=== PATIENT | female | born 1960 | race Caucasian/White ===

== ENCOUNTER 2018-09-27 10:16 | Day surgery (SDC) | payer OTHER ==
[2018-09-26 12:18] VITALS: BMI 34.9
[~2018-09-27 10:16] MED LIST: DEXAMETHASONE SOD PHOSPHATE 10 MG/ML 1 ML VIAL IV ONE; LACTATED RINGERS 1,000 ML IV SCH; MIDAZOLAM 2 MG/2 ML VIAL IV PRN; ONDANSETRON 4 MG/2 ML VIAL IVP ONE; Pre Op ABX Message 1 EACH MISC MISCELLANE ONE; SCOPOLAMINE 1.5MG/72HR PATCH TRANSDERM ONE; fentaNYL (PF) 50 MCG/ML 2 ML AMP IV PRN
[2018-09-27 11:27] VITALS: RESP 16; TEMP 97.3
[2018-09-27] MEDS ORDERED: LIDOCAINE 1% 20 ML VIAL (10MG/ML) FOR IV START INTRADERMA ONE (11:39)
[2018-09-27] MEDS ORDERED: MIDAZOLAM 2 MG/2 ML VIAL ONE (11:56)
[2018-09-27] MEDS ORDERED: fentaNYL (PF) 50 MCG/ML 2 ML AMP ONE (11:56)
[2018-09-27] MEDS ORDERED: KETAMINE 10 MG/ML 20 ML VIAL ONE (11:56)
[2018-09-27] MEDS ORDERED: PROPOFOL 10 MG/ML 20 ML VIAL IV ONE (11:56)
[2018-09-27] MEDS ORDERED: LIDOCAINE 1%-EPI 1:100,000 30 ML VIAL SQ ONE (12:15)
[2018-09-27] MEDS ORDERED: BUPIVACAINE (PF) 0.5% 30 ML VIAL SQ ONE ×2 (12:33→12:54)
[2018-09-27] MEDS ORDERED: LACTATED RINGERS 1,000 ML IV ONE ×2 (13:20)
[2018-09-27 13:55] VITALS: BP 115/68; PULSE 79
--- NOTE | 2018-09-28 14:38 | P.OP ---
Date of Procedure: 09/27/18 Preoperative Diagnosis: 1. Right carpal tunnel syndrome 2. Trigger digits of the right thumb, middle and ring fingers Postoperative Diagnosis: 1. Right carpal tunnel syndrome 2. Trigger digits of the right thumb, middle and ring fingers Procedure(s) Performed: 1. Right endoscopic carpal tunnel release 2. Release of right trigger thumb, right middle and ring trigger fingers Anesthesia: MAC, local Surgeon: Pablo Guerra Estimated Blood Loss (ml): 3 Condition: stable Disposition: PACU Indications for Procedure: The patient is a 58-year-old female who was diagnosed with right carpal tunnel syndrome and trigger digits of the right thumb, middle and ring fingers. Treatment options (and associated risks and benefits) were discussed in the office. The patient elected to proceed with surgical release. In preop, the patient denied any additional questions or concerns. Consent forms were signed. The operative sites were confirmed and marked. Description of Procedure: The patient was positioned supine with the operative limb on an arm board. A tourniquet was placed on the operative arm. Anesthesia was administered uneventfully. A time-out was performed, confirming patient identifiers, the operative side, sites and the procedures to be performed: all team members expressed agreement. Using aseptic technique, local anesthetic was injected into the subcutaneous tissues around the planned incisions. The right upper extremity was then prepped and draped in standard, sterile fashion. The limb was exsanguinated with an Esmarch and the tourniquet was inflated. The carpal tunnel was approached first. Loupe magnification was used throughout the case for optimum visualization. A 1.5 cm transverse incision was marked just proximal to the wrist flexion crease, in line with the radial border of the ring finger. The skin was sharply incised and the subcutaneous tissues were bluntly spread. The volar carpal fascia was identified and sharply incised. A synovial elevator was used to release adhesions on the underside of the transverse carpal ligament. A dilator was inserted to sound and enlarge the carpal tunnel. The hamate hook was palpable ulnarly. The side-specific guide and camera were inserted. The transverse carpal ligament was clearly visualized above. The distal edge of the ligament was identified and palpated with a probe. A rasp was used to clear the remaining synovial adhesions. The endoscopic blade was inserted and the distal half of the ligament was sharply incised. Residual distal transverse fibers were released and then the proximal portion of the ligament was divided. Wide release of ligament was visually confirmed. The camera was removed. The volar carpal fascia proximal and distal to the incision was released with scissors under direct visualization. Attention was then turned to the thumb. A transverse incision was made in the MCP flexion crease. Blunt, spreading dissection proceeded down to the flexor sheath, taking care to protect the adjacent neurovascular bundles. Thickened, synovial bands were identified overl christi the flexor sheath and these were sharply released with scissors under direct visualization. The A1 hay was identified. This was sharply incised longitudinally. The sheath was still quite stenosed and the proximal aspect of the oblique hay was also partially released. The tendon was elevated out of the wound with a Ragnell retractor. Palpable release of adhesions in the palm was noted and the IP joint showed good passive flexion. The tendon was released and allowed to retract back into the wound. Attention was turned to the middle and ring fingers. A longitudinal incision was marked over the A1 hay of the middle finger. The skin was sharply incised. Blunt, spreading dissection proceeded down flexor sheath, taking care to protect the adjacent neurovascular bundles. The A1 hay was identified. The hay was incised longitudinally with a 15-blade scalpel. A few millimeters of the proximal aspect of the A2 hay was also released. There was mild, superficial fraying of the superficialis tendon beneath the ahy. The flexor tendons were elevated out of the wound with Ragnell retractors. Palpable release of proximal adhesions in the palm was noted. A small amount of thickened synovial tissue was identified proximally between the tendons and was sharply resected. The tendons were released and allowed to retract back to their anatomic position. Passive motion of the digit demonstrated smooth tendon gliding without appreciable catching, triggering or focal restriction. This process was repeated for the ring finger. The procedure was performed in a similar fashion. These tendons showed no fraying or thickened tenosynovium. Smooth tendon gliding with passive motion was noted after release without triggering or catching. The tourniquet was released after 31 minutes at 250mm Hg. Some mild bleeding was controlled with held pressure and good hemostasis was confirmed. The wounds were thoroughly irrigated with normal saline. The incisions were closed with interrupted 4-0 Nylon sutures. Additional local anesthetic was injected for postoperative pain control. A soft, sterile dressing was applied. All sponge, needle and instrument counts were correct at the end of the case. The patient tolerated the procedure well and was transferred to recovery in stable condition.
== END 2018-09-27 14:17 | disposition home or self-care (01) ==
LOC: OR 10:16
PROVIDERS: ATTEND Orthopaedic Surgery
DX: G56.03 Carpal tunnel syndrome, bilateral upper limbs (principal); M65.311 Trigger thumb, right thumb; M65.331 Trigger finger, right middle finger; M65.341 Trigger finger, right ring finger; M79.7 Fibromyalgia; Z79.1 Long term (current) use of non-steroidal anti-inflammatories (NSAID); Z79.899 Other long term (current) drug therapy; Z88.5 Allergy status to narcotic agent; Z88.8 Allergy status to other drugs, medicaments and biological substances
CPT/HCPCS: 64721; 26055 ×3; J2250; J2405; J3010; J2704

== ENCOUNTER 2018-10-25 10:41 | Day surgery (SDC) | payer OTHER ==
[2018-10-23 10:59] VITALS: BMI 34.7
[~2018-10-25 10:41] MED LIST changes: -DEXAMETHASONE SOD PHOSPHATE 10 MG/ML 1 ML VIAL IV ONE; -MIDAZOLAM 2 MG/2 ML VIAL IV PRN; -ONDANSETRON 4 MG/2 ML VIAL IVP ONE; -SCOPOLAMINE 1.5MG/72HR PATCH TRANSDERM ONE; -fentaNYL (PF) 50 MCG/ML 2 ML AMP IV PRN
[2018-10-25 11:04] VITALS: RESP 16; TEMP 97.4
[2018-10-25] MEDS: LIDOCAINE 1% 20 ML VIAL (10MG/ML) FOR IV START INTRADERMA ONE ×2 (11:14→12:53)
[2018-10-25] MEDS ORDERED: fentaNYL (PF) 50 MCG/ML 2 ML AMP ONE (12:45)
[2018-10-25] MEDS ORDERED: MIDAZOLAM 2 MG/2 ML VIAL ONE (12:45)
[2018-10-25] MEDS ORDERED: PROPOFOL 10 MG/ML 20 ML VIAL IV ONE (12:45)
--- NOTE | 2018-10-25 13:48 | P.OP ---
Date of Procedure: 10/25/18 Preoperative Diagnosis: Left carpal tunnel syndrome Postoperative Diagnosis: Left carpal tunnel syndrome Procedure(s) Performed: Left endoscopic carpal tunnel release Anesthesia: MAC, local Surgeon: Pablo Guerra Estimated Blood Loss (ml): 1 Condition: stable Disposition: PACU Indications for Procedure: The patient is a 58-year-old female who was diagnosed with bilateral carpal tunnel syndrome and previously underwent release of her right side. She had persistent symptoms on the left and wished to have this released as well. Treatment options (and associated risks and benefits) were discussed in the office. The patient elected to proceed with surgical release. In preop, the patient denied any additional questions or concerns. Consent forms were signed. The operative site was confirmed and marked. Description of Procedure: The patient was positioned supine with the operative limb on an arm board. Monitored anesthesia was administered uneventfully. A tourniquet was placed on the left arm. A time-out was performed which confirmed the patient, the operative side, site and the procedure to be performed: all team members expressed agreement. Using aseptic technique, local anesthetic was injected into the subcutaneous tissues around the planned incision. The left upper extremity was then prepped and draped in standard, sterile fashion. The limb was exsanguinated with an Esmarch and the tourniquet was inflated. A transverse incision was marked just proximal to the wrist flexion crease, in line with the radial border of the ring finger. The skin was sharply incised and the subcutaneous tissues were spread. The volar carpal fascia was identified and sharply incised. A synovial elevator was used to release adhesions on the underside of the transverse carpal ligament. A dilator was used to sound and enlarge the carpal tunnel. The hamate hook was palpable ulnarly. The side- specific guide and camera were inserted. The ligament was clearly visualized above. The endoscopic blade was inserted and the distal half of the ligament was sharply incised. Residual transverse fibers were released distally and then the proximal portion of the ligament was divided. Wide release of ligament was visually confirmed. The camera was removed. Under direct visualization with loupe magnification, the volar carpal fascia was released with scissors, distal and proximal to the incision. There was some mild, thickened perineural tissue noted around the nerve but this was not constricting and the nerve was freely mobile. The tourniquet was released and excellent hemostasis obtained with held pressure. The wound was thoroughly irrigated with normal saline and the incision was closed with interrupted 4-0 Nylon sutures. Additional local anesthetic with epinephrine was injected for adjunctive postoperative pain control and hemostasis. A soft, sterile dressing was applied. All sponge, needle and instrument counts were correct at the end of the case. The patient tolerated the procedure well and was transferred to recovery in stable condition.
[2018-10-25 14:16] VITALS: BP 112/57; PULSE 55
== END 2018-10-25 14:20 | disposition home or self-care (01) ==
LOC: OR 10:41
PROVIDERS: ATTEND Orthopaedic Surgery
DX: G56.02 Carpal tunnel syndrome, left upper limb (principal); K21.9 Gastro-esophageal reflux disease without esophagitis; M79.7 Fibromyalgia; Z98.1 Arthrodesis status; Z79.1 Long term (current) use of non-steroidal anti-inflammatories (NSAID); Z79.899 Other long term (current) drug therapy; Z88.5 Allergy status to narcotic agent; Z88.8 Allergy status to other drugs, medicaments and biological substances
CPT/HCPCS: 29848; J2250; J3010; J2704

== ENCOUNTER → 2019-03-04 | Outpatient (CLI) | payer OTHER ==
--- NOTE | 2019-03-04 11:23 | XR ---
EXAMINATION TYPE: XR chest 2V DATE OF EXAM: 03/04/2019 COMPARISON: NONE HISTORY: Presurgical examination. TECHNIQUE: Frontal and lateral views of the chest are obtained. FINDINGS: There is no focal air space opacity, pleural effusion, or pneumothorax seen. The cardiac silhouette size is within normal limits. The osseous structures are intact. Minimal degenerative ch anges of the thoracic spine. IMPRESSION: No acute cardiopulmonary process.
[2019-03-04 11:43] LABS: Basophils # (A) 0.2 k/uL (0-0.2); Basophils % (A) 3 %; Eosinophils # (A) 0.3 k/uL (0-0.7); Eosinophils % (A) 4 %; HCT 41.5 % (34.0-46.0); HGB 12.9 gm/dL (11.4-16.0); Lymphocytes # (A) 2.2 k/uL (1.0-4.8); Lymphocytes % (A) 34 %; MCHC 31.1 g/dL (31.0-37.0); MCV 93.2 fL (80.0-100.0); Mean Platelet Volume 6.9; Monocytes # (A) 0.4 k/uL (0-1.0); Monocytes % (A) 6 %; Neutrophils # (A) 3.3 k/uL (1.3-7.7); Neutrophils % (A) 51 %; Platelet Count 322 k/uL (150-450); RBC 4.45 m/uL (3.80-5.40); RDW 13.6 % (11.5-15.5); WBC 6.5 k/uL (3.8-10.6)
[2019-03-04 11:46] LABS: Appearance,Urine Clear (Clear); Bilirubin,Urine Negative (Negative); Blood,Urine Small (Negative); Color,Urine Light Yellow; Glucose,Urine (UA) Negative (Negative); Ketones,Urine Negative (Negative); Leukocyte Esterase,Urine Negative (Negative); Nitrite,Urine Negative (Negative); Protein,Urine Negative (Negative); RBC,Urine 4 /hpf (0-5); Specific Gravity,Urine 1.008 (1.001-1.035); Squamous Epithelial Cell,Urine <1 /hpf (0-4); Urobilinogen,Urine <2.0 mg/dL (<2.0)
[2019-03-04 11:52] LABS: INR 0.9 (<1.2); Partial Thromboplastin Time 23.9 sec (22.0-30.0); Prothrombin Time 9.8 sec (9.0-12.0)
[2019-03-04 12:01] LABS: Potassium 5.1 mmol/L (3.5-5.1)
== END | disposition home or self-care (01) ==
LOC: RADXRMAIN 09:48
PROVIDERS: ATTEND Orthopaedic Surgery Orthopaedic Surgery of the Spine
DX: Z01.818 Encounter for other preprocedural examination (principal); Z01.812 Encounter for preprocedural laboratory examination; M48.00 Spinal stenosis, site unspecified; M43.10 Spondylolisthesis, site unspecified
CPT/HCPCS: 71046; 80048; 81001; 85025; 85610; 85730; 87070; 93005

== ENCOUNTER 2019-03-19 10:17 | Inpatient (IN) | payer OTHER ==
[~2019-03-19 10:17] MED LIST changes: +BACITRACIN 50,000 UNIT, POLYMYXIN B 500,000 UNIT in SODIUM CHLORIDE 0.9% IRRIGATIO 1,00... IRRIGATION ONE; +DEXAMETHASONE SOD PHOSPHATE 10 MG/ML 1 ML VIAL IV ONE; -LACTATED RINGERS 1,000 ML IV SCH; +LIDOCAINE 1% 20 ML VIAL (10MG/ML) FOR IV START INTRADERMA PRN; +MIDAZOLAM 2 MG/2 ML VIAL IV PRN; +ONDANSETRON 4 MG/2 ML VIAL IVP ONE; -Pre Op ABX Message 1 EACH MISC MISCELLANE ONE; +SCOPOLAMINE 1.5MG/72HR PATCH TRANSDERM ONE
[2019-03-19] MEDS: LACTATED RINGERS 1,000 ML IV SCH (10:46)
[2019-03-19] MEDS ORDERED: HYDROmorphone (PF) 1 MG/ML ONE (11:11)
[2019-03-19] MEDS ORDERED: HEPARIN SODIUM,PORCINE 10,000 UNIT/ML 1 ML VIAL ONE (11:11)
[2019-03-19] MEDS ORDERED: NEOSTIGMINE 1 MG/ML 10 ML VIAL ONE (11:11)
[2019-03-19] MEDS ORDERED: fentaNYL (PF) 50 MCG/ML 2 ML AMP ONE (11:11)
[2019-03-19] MEDS ORDERED: MIDAZOLAM 2 MG/2 ML VIAL ONE (11:11)
[2019-03-19] MEDS ORDERED: ROCURONIUM BROMIDE 10 MG/ML 10 ML VIAL IV ONE (11:11)
[2019-03-19] MEDS ORDERED: SUCCINYLCHOLINE CHLORIDE 100 MG/5 ML SYR IV ONE (11:11)
[2019-03-19] MEDS ORDERED: GLYCOPYRROLATE 0.2 MG/ML 2 ML VIAL ONE (11:11)
[2019-03-19] MEDS ORDERED: LACTATED RINGERS 1,000 ML BAG IV ONE (11:11)
[2019-03-19] MEDS ORDERED: PROPOFOL 10 MG/ML 20 ML VIAL IV ONE (11:11)
[2019-03-19] MEDS ORDERED: LIDOCAINE 1% INJ 10MG/ML (20 ML MDV) ONE (11:11)
[2019-03-19] MEDS ORDERED: LIDOCAINE 0.5%-EPI 1:200,000 50 ML VIAL SQ ONE (11:15)
[2019-03-19] MEDS ORDERED: GELATIN SPONGE,ABSORB (LARGE) 1 EACH SPONGE TOPICAL ONE (11:15)
[2019-03-19] MEDS ORDERED: THROMBIN (BOVINE) 5,000 UNIT VIAL TOPICAL ONE (11:15)
[2019-03-19] MEDS ORDERED: LACTATED RINGERS 1,000 ML IV ONE ×2 (13:29→15:39)
--- NOTE | 2019-03-19 15:50 | FL ---
Fluoroscopy INDICATION: Pain FINDINGS: Fluoroscopy time: 9 seconds. Images obtained: 0. IMPRESSIONS: 1. Documentation of fluoroscopy.
--- NOTE | 2019-03-19 15:51 | XR ---
Fluoroscopy INDICATION: Pain FINDINGS: Fluoroscopy time: 9 seconds. Images obtained: 3. IMPRESSIONS: 1. Documentation of fluoroscopy.
[2019-03-19] MEDS ORDERED: BENZOCAINE/MENTHOL LOZENG 1 EACH LOZENGE MUCOUS MEM PRN (16:05)
[2019-03-19] MEDS ORDERED: HYDROcodone/APAP 5-325MG 1 EACH TAB PO PRN ×2 (16:05)
--- NOTE | 2019-03-19 16:18 | P.OP ---
Date of Procedure: 03/19/19 Preoperative Diagnosis: Spondylolisthesis L3 4 L4 5, adjacent level degeneration, spinal stenosis L3 4 L4 5, history of prior fusion L5-S1, low back pain, lower extremity radiculopathy, retained hardware L5-S1 Postoperative Diagnosis: Same with findings of solid fusion at L5-S1 Anesthesia: GETA Pathology: none sent Condition: stable Disposition: PACU Description of Procedure: BRIEF OPERATIVE NOTE Preoperative Diagnosis:Spondylolisthesis L3 4 L4 5, adjacent level degeneration, spinal stenosis L3 4 L4 5, history of prior fusion L5-S1, low back pain, lower extremity radiculopathy, retained hardware L5-S1 Postoperative Diagnosis:Spondylolisthesis L3 4 L4 5, adjacent level degeneration, spinal stenosis L3 4 L4 5, history of prior fusion L5-S1, low back pain, lower extremity radiculopathy, retained hardware L5-S1 Procedure: Laminectomy and decompression L3 4 L4 5 with bilateral foraminotomies and wide decompression Posterior lateral decompression and fusion L3 4 L4 5 Transforaminal lumbar interbody fusion for a 360 fusion L3 4 L4 5 Discectomy for decompression L3 4 L4 5 Placement of interbody graft L3 4 L4 5 Removal of deep hardware at L5 and S1 Exploration of fusion L5-S1 with findings of solid fusion Local autogenous bone grafting Use of Cell Saver Use of bone graft extenders Use of neuro monitoring Surgeon: Dr. Meza Radiologist Physician: Reinier Cruz is present throughout the entire the case persistence during positioning, dissection, exposure, visualization, and all crucial elements of the case as well as closure. Anesthesia: General anesthesia per Dr. Kiser Estimated blood loss: Approximately 600 with 190 get back through Cell Saver Complications: None apparent Components implanted: We removed TSRH pedicle screws at L5 and S1 with rods there examined and found to be in total. We implanted new K2M [place] pedicle screws measuring 6.5 x 40 mm 6 with 2 rods and one cross-link into [place] interbody cages as well as 30 mL of DBX bone fibers and 10 mL of bio4 bone graft substitute to supplemental local autogenous bone graft Disposition: To recovery room in good stable condition. OPERATIVE INDICATIONS The patient has had long-standing issues in their lower back and lower extremities. In the past she had undergone decompression and fusion at L5-S1 for spinal stenosis and lower extremity radiculopathy and had done well with that procedure. Over the years however she started developed further back pain and worsening issues at her lumbar spine and her bilateral lower extremities. She was found have adjacent level degeneration at L4 5 as well as dynamic sp ondylolisthesis L3 4 and L4 5 with final stenosis and degenerative disc disease. Her imaging correlate well with her low back and lower extremity symptoms. She is having worsening symptoms despite aggressive conservative care. The patient has been through conservative treatment. We discussed various treatment options including surgery, and the patient wishes to proceed with surgery We discussed the risk, patient's alternatives and benefits of surgery including but not limited to, risk of bleeding risk of infection, risk of need for further surgery, risk of decreased, loss of motion, muscle function, malunion nonunion, hardware failure, nerve damage, paralysis, heart attack, blindness and . OPERATIVE SUMMARY After discussing all the risks, patient alternatives and benefits at length, the patient elected to proceed with surgical intervention, signed informed consent, and presented for their procedure. The patient was seen and examined in the preoperative holding area and the surgical site was marked. The patient was given antibiotics and brought to the operating room. The patient was sedated and intubated by anesthesia in standard fashion. The patient was positioned on to the operating room table in a prone position on the appropriate frame which was well-padded and well molded. We were careful to pad any bony prominences and pressure points. We were careful to maintain the patient's cervical spine and good neutral alignment and position throughout. The patient was prepped and draped in a normal standard fashion. An appropriate timeout and keystone protocol performed. We were able to proceed with the surgery. The local wound area was infiltrated with local anesthetic. An incision was made at the midline longitudinally over the appropriate levels from L3 to S1 utilizing the prior incision and extending it cephalad. Dissection was taken down subcutaneously to the level of the fascia which was split midline. Dissection was taken over the lamina bilaterally over the facet joints and to the transverse processes. Intraoperative x-ray was taken which showed a marker at the appropriate level at L4. With the appropriate level positively confirmed, I was able to identify the pedicle screws at L5 and S1 bilaterally along with the attachments and rods. With the appropriate screw removal devices and his rotation without TSRH pedicle screw system in order to remove the Screws and leakage and rods. The pedicle screws were removed. The L4 pedicle screw on the right did strip but we were able to remove it with the appropriate easy out for screw removal. Once we had the old pedicle screws removed at L5 and S1 we were able to proceed with placement of the new pedicle holes and screws at L3 and L4. The patient had all their twitches back. The wound was copiously irrigated and suctioned dry as had been done periodically throughout the case. Screw holes were established similarly at each level. A sharp awl was used to establish the starting hole. It was palpated and found to have good for patel and good base. A monitored Steffee probe was used to establish the pedicle hole. It was positioned so there was no stimulation at 12 mA. The hole was palpated and found to have good for patel and a good base. The hole was tapped with the appropriate sized tap. The transverse process or sacral ala was decorticated with a high-speed bur. I was able to use these holes to place the appropriate size screw and good alignment and good position with good bony purchase. At L3 and L4 and did have to reposition the screws but I was able get excellent alignment and position within the pedicles at L3 and L4 bilaterally. When the screws were inserted there were stimulated, and found to have no stimulation at 20 mA. I was able to turn my attention to the decompression. decompression was performed with a combination of rongeurs, curettes, Kerrison rongeurs and a ball-tip feeler at L34 and L4 5. All of the bone that was removed was stripped and morcellized for use as autogenous bone graft later in the case. I was able to obtain good central decompression as well as wide bilateral foraminal decompression. There is no evidence of dural tear or leak. Good hemostasis was maintained. The wound was irrigated and suctioned dry. I performed a complete facetectomy at the appropriate level on the most symptomatic side on the left of L3 4 and L4 5. All bone that was removed was saved for local autogenous bone grafting. I was able to gain access to the disc space at the appropriate level/levels. Good hemostasis was maintained. I was able to protect the neurologic structures. A discectomy was performed. This provided further decompression. I was also able to perform complete discectomy and endplate preparation with a combination of pituitary curettes, rasps and scrapers. With the interbody space prepared, I was able to do appropriate sizing. The appropriate size cage was chosen. The wound was irrigated and suc tioned dry. The interbody space was packed with local autogenous bone graft and a small portion of bone graft substitute, as was the cage itself. Protecting the soft tissue structures, I was able place the cage in good alignment and good position with good fit and fill. There is no evidence of extrusion of the graft material nor protrusion of the interbody device at L3 4 oh) L4 5. The wound was irrigated and suctioned dry. With the hardware intact, intraoperative x-ray was again taken which showed good alignment and position of the hardware at the appropriate levels at L3 4 5 and extending down to S1. We were then able to measure, contour and place the rods and appropriate hardware bilaterally. I used new screws at L5 3 and L4. I skipped the pedicle holes of L5 and used the pedicle holes at S1 to place new pedicle screws into the previously established pedicle holes at S1. I was able to contour and place rods from L3 to S1. I was able to place capcrews, tighten them down, and torque them off appropriately. With this intact I was able to place the local autogenous bone graft with additional bone graft enhancer as necessary into the posterior lateral gutters bilaterally. With the bone graft intact, a stable construct, and good decompression at the appropriate levels, we were able to proceed with closure. Good hemostasis was maintained. There is no evidence of dural tear or leak. The fascia was closed for a watertight closure. The subcutaneous tissue was closed over a superficial drain. The subcuticular tissue was closed with absorbable suture. The wound was cleaned and dried and dressed with the appropriate dressing. The drapes were broken down. The patient was gently rolled back onto their hospital bed being careful to maintain their cervical spine and good neutral alignment and position. They were woken up by anesthesia, extubated, and brought to the recovery room in good stable condition. The patient will be admitted to the hospital for appropriate postoperative care, medical management and monitoring. We will continue to follow them closely about the postoperative course.
[2019-03-19] MEDS: HYDROmorphone 0.5 MG/0.5 ML SYRINGE IVP PRN ×5 (16:20→19:15)
[2019-03-19] MEDS: SODIUM CHLORIDE 0.9% 1,000 ML IV SCH (16:28)
[2019-03-19] MEDS ORDERED: fentaNYL (PF) 50 MCG/ML 2 ML AMP IVP ONE (17:30)
[2019-03-19 18:15] VITALS: BMI 33.9
[2019-03-19] MEDS: ONDANSETRON 4 MG/2 ML VIAL IVP PRN (19:11)
[2019-03-19] MEDS: HYDROmorphone 1 MG/ML 1 ML SYRINGE IVP PRN (22:18)
[2019-03-19] MEDS: diphenhydrAMINE 25 MG CAP PO SCH (22:18)
[2019-03-19] MEDS: GABAPENTIN 300 MG CAP PO SCH (22:18)
[2019-03-20] MEDS: HYDROmorphone 1 MG/ML 1 ML SYRINGE IVP PRN ×7 (00:21→20:58)
[2019-03-20] MEDS: LACTATED RINGERS 1,000 ML IV SCH (01:29)
[2019-03-20] MEDS: SODIUM CHLORIDE 0.9% 1,000 ML IV SCH ×2 (06:53→20:40)
[2019-03-20] MEDS: SENNOSIDES-DOCUSATE SODIUM 1 EACH TAB PO SCH (07:02)
[2019-03-20] MEDS: ONDANSETRON 4 MG/2 ML VIAL IVP PRN ×2 (07:06→18:53)
[2019-03-20 08:04] LABS: Basophils % (A) 0 %; Eosinophils # (A) 0.1 k/uL (0-0.7); Eosinophils % (A) 1 %; HCT 32.6 % (34.0-46.0); HGB 10.6 gm/dL (11.4-16.0); Lymphocytes # (A) 1.6 k/uL (1.0-4.8); Lymphocytes % (A) 15 %; MCH 29.7 pg (25.0-35.0); MCHC 32.4 g/dL (31.0-37.0); MCV 91.7 fL (80.0-100.0); Mean Platelet Volume 6.6; Monocytes # (A) 0.8 k/uL (0-1.0); Monocytes % (A) 7 %; Neutrophils # (A) 8.3 k/uL (1.3-7.7); Neutrophils % (A) 76 %; Platelet Count 252 k/uL (150-450); RBC 3.56 m/uL (3.80-5.40); RDW 13.4 % (11.5-15.5); WBC 10.9 k/uL (3.8-10.6)
[2019-03-20 08:20] LABS: Calcium 8.1 mg/dL (8.4-10.2); Potassium 4.3 mmol/L (3.5-5.1)
--- NOTE | 2019-03-20 08:29 | P.PN ---
Subjective Progress Note Date: 03/20/19 Principal diagnosis: Lumbar stenosis and radiculopathy. History of L5-S1 fusion. The patient has had long-standing issues in their lower back and lower extremi ties. In the past she had undergone decompression and fusion at L5-S1 for spinal stenosis and lower extremity radiculopathy and had done well with that procedure. Over the years however she started developed further back pain and worsening issues at her lumbar spine and her bilateral lower extremities. She was found have adjacent level degeneration at L4 5 as well as dynamic spondylolisthesis L3 4 and L4 5 with final stenosis and degenerative disc disease. Her imaging correlate well with her low back and lower extremity symptoms. She is having worsening symptoms despite aggressive conservative care. The patient has been through conservative treatment. We discussed various treatment options including surgery, and the patient wishes to proceed with surgery We discussed the risk, patient's alternatives and benefits of surgery including but not limited to, risk of bleeding risk of infection, risk of need for further surgery, risk of decreased, loss of motion, muscle function, malunion nonunion, hardware failure, nerve damage, paralysis, heart attack, blindness and . She is status postremoval of hardware L5-S1 PLDF L3 4 & L4 5. She is post op day 1. Complains of low back and hip pain. No complaint of neurological deficits to lower extremities. Vital signs and labs are stable. Objective - Vital Signs Vital signs: Vital Signs Temp 98.7 F 03/20/19 01:23 Pulse 68 03/20/19 01:23 Resp 18 03/20/19 01:23 BP 91/54 03/20/19 01:23 Pulse Ox 97 03/20/19 07:32 Intake & Output 03/19/19 03/20/19 03/20/19 18:59 06:59 18:59 Intake Total 2151 300 Output Total 910 1680 Balance 1241 -1380 Intake: IV 2151 Intake, IV Titration 300 Amount Sodium Chloride 0.9% 1, 300 000 ml @ 75 mls/hr IV . [id number] Rx#:[id number] Output: Drainage 180 Left Back 180 Urine 310 1500 Estimated Blood Loss 600 Other: Voiding Method Indwelling Catheter - Exam Alert and Oriented x 3. Sitting up in bed, fairly comfortable. She has full foot and ankle motion bilaterally. Normal sensation to toes. No neurologic deficits noted on exam. Hemovac in tact. - Labs CBC & Chem 7: 03/20/19 07:12 03/20/19 07:12 Labs: Abnormal Lab Results - Last 24 Hours (Table) 03/20/19 Range/Units 07:12 WBC 10.9 H (3.8-10.6) k/uL RBC 3.56 L (3.80-5.40) m/uL Hgb 10.6 L (11.4-16.0) gm/dL Hct 32.6 L (34.0-46.0) % Neutrophils # 8.3 H (1.3-7.7) k/uL Assessment and Plan (1) Lumbar foraminal stenosis Current Visit: Yes Status: Acute Code(s): M48.061 - SPINAL STENOSIS, LUMBAR REGION WITHOUT NEUROGENIC EMMETT SNOMED Code(s): 417214956 (2) Lumbar radiculopathy Current Visit: Yes Status: Acute Code(s): M54.16 - RADICULOPATHY, LUMBAR REGION SNOMED Code(s): 217086951 (3) Status post lumbar spinal fusion Current Visit: Yes Status: Acute Code(s): Z98.1 - ARTHRODESIS STATUS SNOMED Code(s): 95488046204186 Plan: The clinical findings are discussed with the patient. Her hemovac will remain in place until tomorrow. Begin physical therapy today per ambulation. Discharge to home on Sunday.
[2019-03-20] MEDS: ACETAMINOPHEN TAB 325 MG TAB PO PRN ×3 (09:42→23:16)
--- NOTE | 2019-03-20 18:46 | P.HPIM ---
History of Present Illness This is a pleasant 58 years old female with past medical history of fibromyalgia, GERD, hyperlipidemia, muscular skeletal disorder, osteoarthritis. Patient is a known case of spondylo-listhesis with spinal stenosis at L3 to 4, and L4 to 5, secondary to degenerative disc disease, presents because of elective surgery for failed conservative management for her low back pain and bilateral lower extremity radiculopathy. She is a status post Laminectomy and decompression L3-4 & L4-5 with bilateral foraminotomies and wide decompression Patient currently lying in bed not in distress, she's complaining from pain at the surgical site about 5/10 which aggravated by movement. Wound drain is in place. She is currently receiving IV fluids at 75 mL/h. She denies chest pain or dyspnea. No abdominal pain. No dizziness. No other complaints. No itching. She denies history of smoking, alcohol or illicit drug But this looks stable, blood pressure was low last night at 91/54, currently 130/59. Left showing mild leukocytosis of 10.9 K, hemoglobin 10.6. Electrolytes and creatinine are within normal limits. Review of Systems CONSTITUTIONAL: No fever, no malaise, no fatigue. HEENT: No recent visual problems or hearing problems. Denied any sore throat. CARDIOVASCULAR: No orthopnea, PND, no palpitations, no syncope. PULMONARY: No shortness of breath, no cough, no hemoptysis. GASTROINTESTINAL: No diarrhea, no nausea, no vomiting, no abdominal pain. Normoactive bowel sounds. NEUROLOGICAL: No headaches, no weakness, no numbness. HEMATOLOGICAL: Denies any bleeding or petechiae. GENITOURINARY: Denies any burning micturition, frequency, or urgency. MUSCULOSKELETAL/RHEUMATOLOGICAL: Denies any joint pain, swelling ENDOCRINE: Denies any polyuria or polydipsia. Past Medical History Past Medical History: Fibromyalgia, GERD/Reflux, Hyperlipidemia, Musculoskeletal Disorder, Osteoarthritis (OA) Additional Past Medical History / Comment(s): Hx Diverticulitis X1. Spondylosis, stenosis. Heart rate runs low, BP runs low, recent cardiac w/u neg, saw CV Dr for clearance. History of Any Multi-Drug Resistant Organisms: None Reported Past Surgical History: Appendectomy, Back Surgery, Orthopedic Surgery, Tubal Ligation Additional Past Surgical History / Comment(s): ORIF Lt ankle, hardware removed, Fx both ankles more than once, bilateral knee surgery (screw in RT ACL), lump removed from lt breast, ganglion cyst removed, Back fusion 06/2003. [facility]. Past Anesthesia/Blood Transfusion Reactions: Family History of Problems w/ Anesthesia, Motion Sickness, Postoperative Nausea & Vomiting (PONV) Additional Past Anesthesia/Blood Transfusion Reaction / Comment(s): Grandmother/Mom/Daughter have PONV. Past Psychological History: No Psychological Hx Reported Smoking Status: Never smoker Past Alcohol Use History: Rare Past Drug Use History: None Reported - Past Family History Mother Family Medical History: No Reported History Medications and Allergies Home Medications Medication Instructions Recorded Confirmed Type Gabapentin [Neurontin] 300 mg PO HS 09/26/18 03/14/19 History Ibuprofen [Motrin] 800 mg PO HS 09/26/18 03/14/19 History Omeprazole 20 mg PO Q72H 09/26/18 03/19/19 History diphenhydrAMINE [Benadryl] 25 mg PO HS 09/26/18 03/14/19 History Acetaminophen Tab [Tylenol Tab] 650 mg PO Q4H PRN 03/19/19 03/19/19 History Allergies Allergy/AdvReac Type Severity Reaction Status Date / Time erythromycin base Allergy Rash/Hives, Verified 03/14/19 17:20 vomiting morphine Allergy Rash/Hives, Verified 03/14/19 17:20 vomiting steroids Allergy Rash/Hives, Uncoded 03/14/19 17:20 nausea,head ache Physical Exam Vitals: Vital Signs Temp Pulse Pulse Resp BP Pulse Ox 03/20/19 07:32 97 03/20/19 07:00 98.2 F 80 16 130/59 92 L 03/20/19 01:23 98.7 F 68 18 91/54 91 L 03/19/19 18:37 64 18 119/81 96 03/19/19 18:30 65 107/70 03/19/19 18:15 47 L 90/51 03/19/19 18:00 64 90/51 03/19/19 17:45 97.1 F L 70 18 127/68 98 03/19/19 17:30 70 16 122/70 99 03/19/19 17:15 71 16 114/52 100 03/19/19 17:00 94 16 126/76 97 03/19/19 16:45 83 16 139/79 100 03/19/19 16:30 89 18 139/79 97 03/19/19 16:16 97.5 F L 97 18 147/88 100 Intake and Output 03/19/19 03/20/19 03/20/19 22:59 06:59 14:59 Intake Total 400 Output Total 1090 1500 Balance -690 -1500 Intake: IV 100 Intake, IV Titration 300 Amount Sodium Chloride 0.9% 1, 300 000 ml @ 75 mls/hr IV . [id number] STEPHANIE Rx#:[id number] Output: Drainage 180 Left Back 180 Urine 310 1500 Estimated Blood Loss 600 Other: Voiding Method Indwelling Catheter GENERAL: The patient is alert and oriented x3, not in any acute distress. Well developed, well nourished. HEENT: Pupils are round and equally reacting to light. EOMI. No scleral icterus. No conjunctival pallor. Normocephalic, atraumatic. No pharyngeal erythema. No thyromegaly. CARDIOVASCULAR: S1 and S2 present. No murmurs, rubs, or gallops. PULMONARY: Chest is clear to auscultation, no wheezing or crackles. ABDOMEN: Soft, nontender, nondistended, normoactive bowel sounds. No palpable organomegaly. -MUSCULOSKELETAL: No joint swelling or deformity. back wound is on dressing , with expected tenderness EXTREMITIES: No cyanosis, clubbing, or pedal edema. NEUROLOGICAL: Gross neurological examination did not reveal any focal deficits. strength exam is limited by post op pain . sensation is intact SKIN: No rashes. No petechiae Results CBC & Chem 7: 03/20/19 07:12 03/20/19 07:12 Labs: Abnormal Lab Results - Last 24 Hours (Table) 03/20/19 03/20/19 Range/Units 07:12 07:12 WBC 10.9 H (3.8-10.6) k/uL RBC 3.56 L (3.80-5.40) m/uL Hgb 10.6 L (11.4-16.0) gm/dL Hct 32.6 L (34.0-46.0) % Neutrophils # 8.3 H (1.3-7.7) k/uL Glucose 115 H (74-99) mg/dL Calcium 8.1 L (8.4-10.2) mg/dL Thrombosis Risk Factor Assmnt - Choose All That Apply Each Factor Represents 1 point: Age 41-60 years, Obesity (BMI >25) Each Risk Factor Represents 2 Points: Major surgery Each Risk Factor Represents 5 Points: Major surgery lasting over 3 hours Thrombosis Risk Factor Assessment Total Risk Factor Score: 9 Thrombosis Risk Factor Assessment Level: High Risk Assessment and Plan Assessment: -spondylo-listhesis with spinal stenosis at L3 to 4, and L4 to 5, secondary to degenerative disc disease, tatus post Laminectomy and decompression L3-4 & L4-5 with bilateral foraminotomies and wide decompression -Chronic low back pain with lower extremity radiculopathy , status post prior fusion of L5-S1 -Chronic fibromyalgia -GERD -Hyperlipidemia -Muscular skeletal disorder -Primary osteoarthritis Plan: This is a pleasant 58 years old female who presents for laminectomy for her spinal stenosis and degenerative disease. Continue with pain management. Continue with IV fluids at the current rate.monitor wbc. Labs and medication were reviewed.. Continue same treatment. Continue with symptomatic treatment. Resume home medication. Monitor lytes and vitals. DVT and GI prophylaxis. Further recommendations of the clinical course of the patient DVT prophylaxis and pain management as per primary surgical team Thank you for consulting us
[2019-03-20] MEDS: HEPARIN SODIUM,PORCINE 5,000 UNIT/ML 1 ML VIAL SQ SCH (20:40)
[2019-03-20] MEDS: GABAPENTIN 300 MG CAP PO SCH (20:40)
[2019-03-20] MEDS: diphenhydrAMINE 25 MG CAP PO SCH (20:40)
[2019-03-21] MEDS: LACTATED RINGERS 1,000 ML IV SCH ×2 (00:06→23:00)
[2019-03-21] MEDS: HYDROmorphone 1 MG/ML 1 ML SYRINGE IVP PRN ×2 (00:51→21:30)
[2019-03-21] MEDS: ACETAMINOPHEN TAB 325 MG TAB PO PRN (03:17)
[2019-03-21 07:34] LABS: Basophils # (A) 0.1 k/uL (0-0.2); Basophils % (A) 1 %; Eosinophils # (A) 0.1 k/uL (0-0.7); Eosinophils % (A) 1 %; HCT 31.4 % (34.0-46.0); HGB 10.6 gm/dL (11.4-16.0); Lymphocytes # (A) 1.9 k/uL (1.0-4.8); Lymphocytes % (A) 13 %; MCH 30.7 pg (25.0-35.0); MCHC 33.6 g/dL (31.0-37.0); MCV 91.3 fL (80.0-100.0); Monocytes # (A) 0.8 k/uL (0-1.0); Monocytes % (A) 6 %; Neutrophils # (A) 11.2 k/uL (1.3-7.7); Neutrophils % (A) 79 %; Platelet Count 245 k/uL (150-450); RBC 3.44 m/uL (3.80-5.40); RDW 13.1 % (11.5-15.5); WBC 14.2 k/uL (3.8-10.6)
[2019-03-21] MEDS: PANTOPRAZOLE 40 MG TABLET PO SCH (07:48)
[2019-03-21] MEDS: HEPARIN SODIUM,PORCINE 5,000 UNIT/ML 1 ML VIAL SQ SCH ×2 (07:48→20:05)
[2019-03-21] MEDS: BUTALB/APAP/CAFF 50-325-40MG TAB PO PRN ×3 (07:48→15:19)
[2019-03-21] MEDS: SENNOSIDES-DOCUSATE SODIUM 1 EACH TAB PO SCH (07:48)
--- NOTE | 2019-03-21 08:12 | P.PN ---
Subjective This is a pleasant 58 years old female with past medical history of fibromyalgia, GERD, hyperlipidemia, muscular skeletal disorder, osteoarthritis. Patient is a known case of spondylo-listhesis with spinal stenosis at L3 to 4, and L4 to 5, secondary to degenerative disc disease, presents because of elective surgery for failed conservative management for her low back pain and bilateral lower extremity radiculopathy. She is a status post Laminectomy and decompression L3-4 & L4-5 with bilateral foraminotomies and wide decompression Patient currently lying in bed not in distress, she's complaining from pain at the surgical site about 5/10 which aggravated by movement. Wound drain is in place. She is currently receiving IV fluids at 75 mL/h. She denies chest pain or dyspnea. No abdominal pain. No dizziness. No other complaints. No i tching. She denies history of smoking, alcohol or illicit drug But this looks stable, blood pressure was low last night at 91/54, currently 130/59. Left showing mild leukocytosis of 10.9 K, hemoglobin 10.6. Electrolytes and creatinine are within normal limits. 03/21/2019 Patient is taking Dilaudid for her back pain however that make her low P with little bothering headache although she takes only 0.5 mg of Dilaudid. Headache is controlled by Tylenol, however her lower back pain is rated as 6/10 in severity which could aggravated by movement. Furosemide is suggested to see that can help the patient. Patient does not want morphine stating that given her ALLERGY and hives. She is tolerating diet well with no abdominal pain. She is passing gases only. Hemodynamically stable. Blood pressure 96/63. She is currently in normal sinus 75 mL/h. Her WBC today is 14.2 K, went and up from 10.9 yesterday. We'll keep monitoring her WBC. Objective - Vital Signs Vital signs: Vital Signs Temp 99.4 F 03/21/19 00:58 Pulse 75 03/21/19 00:58 Resp 18 03/21/19 00:58 BP 96/63 03/21/19 00:58 Pulse Ox 95 03/21/19 00:58 Intake & Output 03/20/19 03/21/19 03/21/19 18:59 06:59 18:59 Output Total 3110 2400 Balance -3110 -2400 Output: Drainage 110 100 Left Back 110 100 Urine 3000 2300 Other: Voiding Method Indwelling Catheter - Exam GENERAL: The patient is alert and oriented x3, not in any acute distress. Well developed, well nourished. HEENT: Pupils are round and equally reacting to light. EOMI. No scleral icterus. No conjunctival pallor. Normocephalic, atraumatic. No pharyngeal erythema. No thyromegaly. CARDIOVASCULAR: S1 and S2 present. No murmurs, rubs, or gallops. PULMONARY: Chest is clear to auscultation, no wheezing or crackles. ABDOMEN: Soft, nontender, nondistended, normoactive bowel sounds. No palpable organomegaly. -MUSCULOSKELETAL: No joint swelling or deformity. back wound is on dressing , with expected tenderness EXTREMITIES: No cyanosis, clubbing, or pedal edema. NEUROLOGICAL: Gross neurological examination did not reveal any focal deficits. strength exam is limited by post op pain . sensation is intact SKIN: No rashes. No petechiae - Labs CBC & Chem 7: 03/21/19 07:07 03/20/19 07:12 Labs: Abnormal Lab Results - Last 24 Hours (Table) 03/20/19 03/20/19 03/21/19 Range/Units 07:12 07:12 07:07 WBC 10.9 H 14.2 H (3.8-10.6) k/uL RBC 3.56 L 3.44 L (3.80-5.40) m/uL Hgb 10.6 L 10.6 L (11.4-16.0) gm/dL Hct 32.6 L 31.4 L (34.0-46.0) % Neutrophils # 8.3 H 11.2 H (1.3-7.7) k/uL Glucose 115 H (74-99) mg/dL Calcium 8.1 L (8.4-10.2) mg/dL Assessment and Plan Assessment: -spondylo-listhesis with spinal stenosis at L3 to 4, and L4 to 5, secondary to degenerative disc disease, tatus post Laminectomy and decompression L3-4 & L4-5 with bilateral foraminotomies and wide decompression -Headache, mostly related to Dilaudid side effects. Continue with pain medication as Tylenol/furosemide -Chronic low back pain with lower extremity radiculopathy , status post prior fusion of L5-S1. -Chronic fibromyalgia -GERD -Hyperlipidemia -Muscular skeletal disorder -Primary osteoarthritis Plan: This is a pleasant 58 years old female who presents for laminectomy for her spinal stenosis and degenerative disease. Continue with pain management. Continue with IV fluids at the current rate.monitor wbc. Pain management as per primary team. Headache could be treated with Tylenol/Fioricet. Labs and me dication were reviewed.. Continue same treatment. Continue with symptomatic treatment. Resume home medication. Monitor lytes and vitals. DVT and GI prophylaxis. Further recommendations of the clinical course of the patient DVT prophylaxis and pain management as per primary surgical team Thank you for consulting us
--- NOTE | 2019-03-21 12:32 | P.PN ---
Progress Note - Text Progress Note Date: 03/21/19 Orthopedic Spine Patient is a pleasant 58-year-old female who is seen and examined at the bedside following posterior lateral decompression and fusion performed Sunday. Patient states they are doing well postsurgically. She does continue to experience significant pain in her surgical site but states her pain has been adequately controlled. She is not currently experiencing any lower extremity weakness or radiculopathy bilaterally she has been working to increase her ambulation. She was having a significant headache and was started on Fioricet which has helped improve her head atraumatically. She states she is known to take this medication outpatient setting previously. She has been using a walker to aid in ambulation. Her Bah catheter was discontinued this morning. If she continues to improve, she does feel she may be ready for discharge home as early as tomorrow, 03/22/2019. Currently does not complain of nausea, vomiting, fever, or chills. Patient is voiding freely without difficulty. Her abdomen is soft nontender. She is not experiencing any abdominal pain. She has been taking Myrtle for pain control without difficulty. Physical Exam Lumbar Fusion: Status post surgical day number 2 Patient is awake, alert, and oriented 3 Vital signs stable Good chest excursion with deep inspiration and expiration Abdomen soft nontender Dorsiflexion, plantarflexion, and extensor hallucis longus positive sustained bilaterally No signs or symptoms of DVT; no calf pain; pneumatic cuffs not currently intact bilateral lower extremities Dressing is clean, dry, and intact; no erythema, purulence, or signs of infection Dressing is removed and changed to nonstick Telfa and Tegaderm Hemovac drain was removed this morning Neurovascularly intact bilaterally lower extremities Assessment: L3-4 and L4-5 open posterior lateral decompression and fusion with transforaminal lumbar interbody fusion Removal of previous hardware L5-S1 Adjacent lumbar degenerative disc disease L3-4 and L4 to S5 spondylolisthesis History of previous fusion L5-S1 Low back pain with lower extremity radiculopathy Plan: 1. Ambulate as tolerated; work with Physical Therapy to increase mobilization; she may continue using a walker to aid in ambulation as needed; prescription has been written and signed provided to case management for a wheeled walker for the patient to use at home when discharge 2. Continue pain control with IV and oral medications; we will continue to wean off IV medications in anticipation for discharge home tomorrow, 03/22/2019 MAPS has been reviewed today, 03/21/2019, with an Overall Overdose Risk Score of 170 and a narcotic score of 40. An "Opiod Start Talking" Form has been signed and placed in the patient's chart. A prescription has been written for Myrtle 7.5 mg/325 mg 1-2 tabs every 6 hours as need for pain, dispensed #56. Prescription has been sent to [facility] at [facility]. Patient should avoid anti-inflammatory medications over the next 6 weeks postoperatively. She may resume other previously prescribed home medications. 3. Dressing changed to Telfa and Tegaderm; Hemovac drain has been discontinued 4. Medical management can continue to manage patient for patient's other medical issues including headache; patient had been started on Fioricet. We discussed if she continues to experience headaches and this medication continues to provide improvement of her symptoms, it may be prescribed for the outpatient setting per medicine at the time of discharge. 5. We will continue to follow the patient closely; if the patient continues to improve, we will plan for discharge home tomorrow, 03/22/2019 6. Patient can follow-up with Reinier Steven PA-C or Dr. Stephen Meza at [facility] in 2-3 weeks following discharge
[2019-03-21] MEDS: SODIUM CHLORIDE 0.9% 1,000 ML IV SCH ×2 (20:01→22:59)
[2019-03-21] MEDS: diphenhydrAMINE 25 MG CAP PO SCH (20:05)
[2019-03-21] MEDS: GABAPENTIN 300 MG CAP PO SCH (20:05)
[2019-03-22] MEDS: HYDROmorphone 1 MG/ML 1 ML SYRINGE IVP PRN (00:39)
[2019-03-22] MEDS: ONDANSETRON 4 MG/2 ML VIAL IVP PRN ×2 (00:39→21:02)
[2019-03-22] MEDS: ACETAMINOPHEN TAB 325 MG TAB PO PRN (01:32)
[2019-03-22] MEDS: HYDROmorphone 0.5 MG/0.5 ML SYRINGE IVP PRN ×4 (04:49→18:12)
[2019-03-22 07:44] LABS: Basophils # (A) 0.1 k/uL (0-0.2); Basophils % (A) 1 %; Eosinophils # (A) 0.2 k/uL (0-0.7); Eosinophils % (A) 1 %; HCT 31.7 % (34.0-46.0); HGB 10.6 gm/dL (11.4-16.0); Lymphocytes # (A) 2.6 k/uL (1.0-4.8); Lymphocytes % (A) 17 %; MCH 30.6 pg (25.0-35.0); MCHC 33.5 g/dL (31.0-37.0); MCV 91.2 fL (80.0-100.0); Monocytes # (A) 0.8 k/uL (0-1.0); Monocytes % (A) 5 %; Neutrophils # (A) 11.7 k/uL (1.3-7.7); Neutrophils % (A) 75 %; Platelet Count 267 k/uL (150-450); RBC 3.48 m/uL (3.80-5.40); RDW 12.9 % (11.5-15.5); WBC 15.7 k/uL (3.8-10.6)
[2019-03-22] MEDS ORDERED: HYDROcodone/APAP 7.5-325MG 1 EACH TAB PO PRN ×2 (09:57)
[2019-03-22] MEDS: SENNOSIDES-DOCUSATE SODIUM 1 EACH TAB PO SCH (10:00)
[2019-03-22] MEDS: HEPARIN SODIUM,PORCINE 5,000 UNIT/ML 1 ML VIAL SQ SCH ×2 (10:00→21:02)
--- NOTE | 2019-03-22 10:04 | P.PN ---
Subjective Progress Note Date: 03/22/19 Principal diagnosis: Lumbar stenosis and radiculopathy. History of L5-S1 fusion. The patient has had long-standing issues in their lower back and lower extremi ties. In the past she had undergone decompression and fusion at L5-S1 for spinal stenosis and lower extremity radiculopathy and had done well with that procedure. Over the years however she started developed further back pain and worsening issues at her lumbar spine and her bilateral lower extremities. She was found have adjacent level degeneration at L4 5 as well as dynamic spondylolisthesis L3 4 and L4 5 with final stenosis and degenerative disc disease. Her imaging correlate well with her low back and lower extremity symptoms. She is having worsening symptoms despite aggressive conservative care. The patient has been through conservative treatment. We discussed various treatment options including surgery, and the patient wishes to proceed with surgery We discussed the risk, patient's alternatives and benefits of surgery including but not limited to, risk of bleeding risk of infection, risk of need for further surgery, risk of decreased, loss of motion, muscle function, malunion nonunion, hardware failure, nerve damage, paralysis, heart attack, blindness and . She is status postremoval of hardware L5-S1 PLDF L3 4 & L4 5. She is post op day 3.. Complains of worsening low back and hip pain. She is having a difficult time managing her pain since last night. No complaint of neurological deficits to lower extremities. Vital signs and labs are stable. Objective - Vital Signs Vital signs: Vital Signs Temp 98.3 F 03/22/19 07:00 Pulse 72 03/22/19 07:00 Resp 14 03/22/19 07:00 BP 111/57 03/22/19 09:59 Pulse Ox 98 03/22/19 07:00 Intake & Output 03/21/19 03/22/19 03/22/19 18:59 06:59 18:59 Intake Total 540 Output Total 1020 Balance -1020 540 Intake: Oral 540 Output: Drainage 20 Left Back 20 Urine 1000 Uretheral (Bah) 1000 Other: Voiding Method Toilet # Voids 2 1 - Exam Alert and Oriented x 3. She is laying on her right side and appears fairly u ncomfortable at this time. She has full foot and ankle motion bilaterally. Normal sensation to toes. No neurologic deficits noted on exam. - Labs CBC & Chem 7: 03/22/19 06:56 03/20/19 07:12 Labs: Abnormal Lab Results - Last 24 Hours (Table) 03/22/19 Range/Units 06:56 WBC 15.7 H (3.8-10.6) k/uL RBC 3.48 L (3.80-5.40) m/uL Hgb 10.6 L (11.4-16.0) gm/dL Hct 31.7 L (34.0-46.0) % Neutrophils # 11.7 H (1.3-7.7) k/uL Assessment and Plan (1) Lumbar foraminal stenosis Current Visit: Yes Status: Acute Code(s): M48.061 - SPINAL STENOSIS, LUMBAR REGION WITHOUT NEUROGENIC EMMETT SNOMED Code(s): 283863117 (2) Lumbar radiculopathy Current Visit: Yes Status: Acute Code(s): M54.16 - RADICULOPATHY, LUMBAR REGION SNOMED Code(s): 805275758 (3) Status post lumbar spinal fusion Current Visit: Yes Status: Acute Code(s): Z98.1 - ARTHRODESIS STATUS SNOMED Code(s): 95775266984344 Plan: The clinical findings are discussed with the patient. I will add Valium and increased her [place] to 7.5 today. We will hold her discharge today to work on pain management. Hopefully discharge home tomorrow.
[2019-03-22] MEDS: SODIUM CHLORIDE 0.9% 1,000 ML IV SCH (11:55)
[2019-03-22] MEDS: BUTALB/APAP/CAFF 50-325-40MG TAB PO PRN ×2 (11:58→21:05)
[2019-03-22] MEDS: DIAZEPAM 2 MG TAB PO PRN ×2 (14:08→21:02)
--- NOTE | 2019-03-22 16:13 | XR ---
EXAMINATION TYPE: XR chest 1V portable DATE OF EXAM: 03/22/2019 COMPARISON: 03/04/2019 INDICATION: Elevated white count TECHNIQUE: Single frontal view of the chest is obtained. FINDINGS: The heart size is normal. The pulmonary vasculature is normal. The lungs are clear. IMPRESSION: 1. No acute pulmonary process.
--- NOTE | 2019-03-22 17:05 | P.PN ---
Subjective This is a pleasant 58 years old female with past medical history of fibromyalgia, GERD, hyperlipidemia, muscular skeletal disorder, osteoarthritis. Patient is a known case of spondylo-listhesis with spinal stenosis at L3 to 4, and L4 to 5, secondary to degenerative disc disease, presents because of elective surgery for failed conservative management for her low back pain and bilateral lower extremity radiculopathy. She is a status post Laminectomy and decompression L3-4 & L4-5 with bilateral foraminotomies and wide decompression Patient currently lying in bed not in distress, she's complaining from pain at the surgical site about 5/10 which aggravated by movement. Wound drain is in place. She is currently receiving IV fluids at 75 mL/h. She denies chest pain or dyspnea. No abdominal pain. No dizziness. No other complaints. No i tching. She denies history of smoking, alcohol or illicit drug But this looks stable, blood pressure was low last night at 91/54, currently 130/59. Left showing mild leukocytosis of 10.9 K, hemoglobin 10.6. Electrolytes and creatinine are within normal limits. 03/21/2019 Patient is taking Dilaudid for her back pain however that make her low P with little bothering headache although she takes only 0.5 mg of Dilaudid. Headache is controlled by Tylenol, however her lower back pain is rated as 6/10 in severity which could aggravated by movement. Furosemide is suggested to see that can help the patient. Patient does not want morphine stating that given her ALLERGY and hives. She is tolerating diet well with no abdominal pain. She is passing gases only. Hemodynamically stable. Blood pressure 96/63. She is currently in normal sinus 75 mL/h. Her WBC today is 14.2 K, went and up from 10.9 yesterday. We'll keep monitoring her WBC. 03/22/2019 Patient still complaining of from back pain, and the surgical site which is expected however she still having to Dilaudid for pain which states that gives her Headache, however patient today had a fever of 101.3. And her WBC went up to 15.7 K. Patient denies chest pain or dyspnea or coughing however she complained from frequent urination like every hour. She has no dysuria or suprapubic tenderness. No rash. No diarrhea actually she is constipated. Ligament order chest x-ray, urinalysis, blood culture and start the patient empi rically on Zosyn, while continue with IV fluids Review of systems HEENT: No recent visual problems or hearing problems. Denied any sore throat. CARDIOVASCULAR: No orthopnea, PND, no palpitations, no syncope. PULMONARY: No shortness of breath, no cough, no hemoptysis. GASTROINTESTINAL: No diarrhea, no nausea, no vomiting, no abdominal pain. Normoactive bowel sounds. NEUROLOGICAL: No headaches, no weakness, no numbness. HEMATOLOGICAL: Denies any bleeding or petechiae. GENITOURINARY: Denies any burning micturition or urgency. MUSCULOSKELETAL/RHEUMATOLOGICAL: Denies any joint pain, swelling, or any muscle pain. ENDOCRINE: Denies any polyuria or polydipsia. Active Medications Generic Name Dose Route Start Last Admin Trade Name Freq PRN Reason Stop Dose Admin Acetaminophen 650 mg 03/19/19 16:09 03/22/19 01:32 Tylenol Tab PO 650 mg Q4H PRN Administration Headache Acetaminophen/Butalbital/Caffeine 1 each 03/21/19 07:36 03/22/19 11:58 Fioricet 50-325-40 PO 1 each Q4HR PRN Administration Headache Hydrocodone Bitart/Acetaminophen 1 each 03/22/19 09:57 Burt 7.5-325 PO Q4H PRN pain scale 1-5 Hydrocodone Bitart/Acetaminophen 2 each 03/22/19 09:57 Burt 7.5-325 PO Q6H PRN pain scale 6-10 Benzocaine/Menthol 1 each 03/19/19 16:05 Cepacol Lozenge MUCOUS MEM Q4HR PRN Sore Throat Diazepam 2 mg 03/22/19 09:51 03/22/19 14:08 Valium PO 2 mg TID PRN Administration pain/spasm Diphenhydramine HCl 25 mg 03/19/19 21:00 03/21/19 20:05 Benadryl PO 25 mg HS STEPHANIE Administration Gabapentin 300 mg 03/19/19 21:00 03/21/19 20:05 Neurontin PO 300 mg HS STEPHANIE Administration Heparin Sodium (Porcine) 5,000 unit 03/20/19 21:00 03/22/19 10:00 Heparin SQ 5,000 unit Q12HR STEPHANIE Administration Hydromorphone HCl 0.5 mg 03/19/19 16:05 03/22/19 14:01 Dilaudid IVP 0.5 mg Q4HR PRN Administration Moderate Pain Hydromorphone HCl 1 mg 03/19/19 16:05 03/22/19 00:39 Dilaudid IVP 1 mg Q4HR PRN Administration Severe Pain Hydromorphone HCl 1.5 mg 03/19/19 22:43 03/21/19 00:51 Dilaudid IVP 1.5 mg Q3HR PRN Administration Pain Lactated Ringer's 1,000 mls @ 20 mls/hr 03/19/19 05:49 03/21/19 23:00 Lactated Ringers IV Not Given .Q24H STEPHANIE Sodium Chloride 1,000 mls @ 75 mls/hr 03/19/19 16:15 03/22/19 11:55 Saline 0.9% IV Not Given .[id number] STEPHANIE Piperacillin Sod/Tazobactam 100 mls @ 25 mls/hr 03/22/19 16:00 Sod 3.375 gm/ Sodium Chloride IVPB Q8HR STEPHANIE Lidocaine HCl 0.1 ml 03/19/19 05:49 03/19/19 10:47 .Xylocaine 1% Inj (10mg/Ml) For Iv Start INTRADERMA 0.1 ml PER PROTOCOL PRN Administration IV Start Magnesium Hydroxide 2,400 mg 03/19/19 16:05 Milk Of Magnesia PO DAILY PRN Constipation Ondansetron HCl 4 mg 03/19/19 16:05 03/22/19 00:39 Zofran IVP 4 mg Q8HR PRN Administration Nausea Pantoprazole Sodium 40 mg 03/21/19 07:30 03/21/19 07:48 Protonix PO 40 mg Q72H STEPHANIE Administration Senna/Docusate Sodium 1 each 03/20/19 09:00 03/22/19 10:00 Senokot-S PO 1 each DAILY STEPHANIE Administration Objective - Vital Signs Vital signs: Vital Signs Temp 98.3 F 03/22/19 07:00 Pulse 72 03/22/19 07:00 Resp 14 03/22/19 07:00 BP 111/57 03/22/19 09:59 Pulse Ox 98 03/22/19 07:00 Intake & Output 03/21/19 03/22/19 03/22/19 18:59 06:59 18:59 Intake Total 540 Output Total 1020 Balance -1020 540 Intake: Oral 540 Output: Drainage 20 Left Back 20 Urine 1000 Uretheral (Bah) 1000 Other: Voiding Method Toilet # Voids 2 1 - Exam GENERAL: The patient is alert and oriented x3, not in any acute distress. Well developed, well nourished. HEENT: Pupils are round and equally reacting to light. EOMI. No scleral icterus. No conjunctival pallor. Normocephalic, atraumatic. No pharyngeal erythema. No thyromegaly. CARDIOVASCULAR: S1 and S2 present. No murmurs, rubs, or gallops. PULMONARY: Chest is clear to auscultation, no wheezing or crackles. ABDOMEN: Soft, nontender, nondistended, normoactive bowel sounds. No palpable organomegaly. -MUSCULOSKELETAL: No joint swelling or deformity. back wound is on dressing , with expected tenderness EXTREMITIES: No cyanosis, clubbing, or pedal edema. NEUROLOGICAL: Gross neurological examination did not reveal any focal deficits. strength exam is limited by post op pain . sensation is intact SKIN: No rashes. No petechiae - Labs CBC & Chem 7: 03/22/19 06:56 03/20/19 07:12 Labs: Abnormal Lab Results - Last 24 Hours (Table) 03/22/19 Range/Units 06:56 WBC 15.7 H (3.8-10.6) k/uL RBC 3.48 L (3.80-5.40) m/uL Hgb 10.6 L (11.4-16.0) gm/dL Hct 31.7 L (34.0-46.0) % Neutrophils # 11.7 H (1.3-7.7) k/uL Assessment and Plan Assessment: -Systemic inflammatory response with fever, tachycardia and leukocytosis. Rule out sepsis -Increased frequency of urination, rule out UTI -spondylo-listhesis with spinal stenosis at L3 to 4, and L4 to 5, secondary to degenerative disc disease, tatus post Laminectomy and decompression L3-4 & L4-5 with bilateral foraminotomies and wide decompression -Headache, mostly related to Dilaudid side effects. Continue with pain medication as Tylenol/furosemide -Chronic low back pain with lower extremity radiculopathy , status post prior fusion of L5-S1. -Chronic fibromyalgia -GERD -Hyperlipidemia -Muscular skeletal disorder -Primary osteoarthritis Plan: This is a pleasant 58 years old female who presents for laminectomy for her spinal stenosis and degenerative disease. Continue with pain management. Continue with IV fluids at the current rate.monitor wbc. Check urinalysis, chest x-ray, blood culture. Start Zosyn. Consult infectious disease Pain management as per primary team. Headache could be treated with Tylenol/Fioricet. Labs and medication were reviewed.. Continue same treatment. Continue with symptomatic treatment. Resume home medication. Monitor lytes and vitals. DVT and GI prophylaxis. Further recommendations of the clinical course of the patient DVT prophylaxis and pain management as per primary surgical team Thank you for consulting us
[2019-03-22] MEDS: PIPERACILLIN-TAZOBACTAM 3.375 GM in SODIUM CHLORIDE 0.9% 100 ML IVPB SCH (17:07)
[2019-03-22] MEDS: GABAPENTIN 300 MG CAP PO SCH (21:02)
[2019-03-22] MEDS: diphenhydrAMINE 25 MG CAP PO SCH (21:02)
[2019-03-22] MEDS ORDERED: SODIUM CHLORIDE 0.9% 500 ML 500 ML IV ONE (21:19)
[2019-03-22 21:52] LABS: Appearance,Urine Clear (Clear); Bacteria,Urine Rare /hpf; Bilirubin,Urine Negative (Negative); Blood,Urine Moderate (Negative); Color,Urine Yellow; Glucose,Urine (UA) Negative (Negative); Ketones,Urine Negative (Negative); Leukocyte Esterase,Urine Negative (Negative); Nitrite,Urine Negative (Negative); Protein,Urine Trace (Negative); RBC,Urine 10 /hpf (0-5); Specific Gravity,Urine 1.013 (1.001-1.035); Squamous Epithelial Cell,Urine 1 /hpf (0-4); Urobilinogen,Urine <2.0 mg/dL (<2.0); WBC,Urine 2 /hpf (0-5)
[2019-03-23] MEDS: PIPERACILLIN-TAZOBACTAM 3.375 GM in SODIUM CHLORIDE 0.9% 100 ML IVPB SCH ×2 (04:01→08:34)
[2019-03-23] MEDS: SODIUM CHLORIDE 0.9% 1,000 ML IV SCH ×3 (04:02→20:17)
[2019-03-23] MEDS: BUTALB/APAP/CAFF 50-325-40MG TAB PO PRN ×4 (04:32→23:01)
[2019-03-23] MEDS: DIAZEPAM 2 MG TAB PO PRN (04:36)
[2019-03-23 07:05] LABS: Basophils # (A) 0.1 k/uL (0-0.2); Basophils % (A) 1 %; Eosinophils # (A) 0.3 k/uL (0-0.7); Eosinophils % (A) 2 %; HCT 29.5 % (34.0-46.0); HGB 9.9 gm/dL (11.4-16.0); Lymphocytes # (A) 1.9 k/uL (1.0-4.8); Lymphocytes % (A) 15 %; MCH 30.1 pg (25.0-35.0); MCHC 33.7 g/dL (31.0-37.0); MCV 89.3 fL (80.0-100.0); Mean Platelet Volume 6.1; Monocytes # (A) 0.7 k/uL (0-1.0); Monocytes % (A) 5 %; Neutrophils # (A) 9.2 k/uL (1.3-7.7); Neutrophils % (A) 75 %; Platelet Count 298 k/uL (150-450); RDW 12.8 % (11.5-15.5); WBC 12.3 k/uL (3.8-10.6)
[2019-03-23] MEDS: HYDROmorphone 0.5 MG/0.5 ML SYRINGE IVP PRN ×3 (07:31→20:16)
[2019-03-23] MEDS: SENNOSIDES-DOCUSATE SODIUM 1 EACH TAB PO SCH (07:36)
[2019-03-23] MEDS: HEPARIN SODIUM,PORCINE 5,000 UNIT/ML 1 ML VIAL SQ SCH ×2 (07:37→20:16)
[2019-03-23] MEDS: LACTATED RINGERS 1,000 ML IV SCH ×2 (08:34→22:41)
[2019-03-23 08:53] LABS: Erythrocyte Sedimentation Rate 91 mm/hr (0-20)
--- NOTE | 2019-03-23 09:15 | P.CONS ---
History of Present Illness - Reason for Consult Consult date: 03/22/19 Postoperative fever and leukocytosis Requesting physician: Cirilo E Lizz - Chief Complaint Low back pain chronic , fever 1 day - History of Present Illness Patient is a 58-year-old female with a past medical history significant for chronic back pain from degenerative disc disease, patient was empirically admitted to the hospital on 03/19/2019, and the patient is status post Laminectomy and decompression L3-4 & L4-5 with bilateral foraminotomies and wide decompression, the patient white count was normal day one post surgery on 1024 however her white count was elevated at 14,000 yesterday and has sometimes up to 15.7 today the patient also spiked a fever of 10 1F last night that prompted this infectious disease consultation, the patient currently denies having any URI symptoms she did have very mild cough but not bringing up any sputum, the patient denies having any abdominal pain no burning frequency of urine and no diarrhea her main symptom has been low back pain at the site of surgery that has been sharp excruciating and almost undetermined severe with some relief with Dilaudid the patient is getting the patient and the daughter mentioned drainage from her surgical site with multiple dressing changes however RN taking care of the patient was not aware of any drainage from her surgical site the patient has been empirically started on Zosyn and infectious disease was consulted for further recommendation Review of Systems Positive point has been mentioned in the HPI rest of the systems are negative Past Medical History Past Medical History: Fibromyalgia, GERD/Reflux, Hyperlipidemia, Musculoskeletal Disorder, Osteoarthritis (OA) Additional Past Medical History / Comment(s): Hx Diverticulitis X1. Spondylosis, stenosis. Heart rate runs low, BP runs low, recent cardiac w/u neg, saw CV Dr for clearance. History of Any Multi-Drug Resistant Organisms: None Reported Past Surgical History: Appendectomy, Back Surgery, Orthopedic Surgery, Tubal Ligation Additional Past Surgical History / Comment(s): ORIF Lt ankle, hardware removed, Fx both ankles more than once, bilateral knee surgery (screw in RT ACL), lump removed from lt breast, ganglion cyst removed, Back fusion 06/2003. [facility]. Past Anesthesia/Blood Transfusion Reactions: Family History of Problems w/ Anesthesia, Motion Sickness, Postoperative Nausea & Vomiting (PONV) Additional Past Anesthesia/Blood Transfusion Reaction / Comm: Grandmother/Mom/Daughter have PONV. Past Psychological History: No Psychological Hx Reported Smoking Status: Never smoker Past Alcohol Use History: Rare Past Drug Use History: None Reported - Past Family History Mother Family Medical History: No Reported History Medications and Allergies Home Medications Medication Instructions Recorded Confirmed Type Gabapentin [Neurontin] 300 mg PO HS 09/26/18 03/14/19 History Ibuprofen [Motrin] 800 mg PO HS 09/26/18 03/14/19 History Omeprazole 20 mg PO Q72H 09/26/18 03/19/19 History diphenhydrAMINE [Benadryl] 25 mg PO HS 09/26/18 03/14/19 History Acetaminophen Tab [Tylenol Tab] 650 mg PO Q4H PRN 03/19/19 03/19/19 History HYDROcodone/APAP 7.5-325MG [[place] 1 - 2 each PO Q6HR PRN #56 tab 03/21/19 Rx 7.5-325] Allergies Allergy/AdvReac Type Severity Reaction Status Date / Time erythromycin base Allergy Rash/Hives, Verified 03/14/19 17:20 vomiting morphine Allergy Rash/Hives, Verified 03/14/19 17:20 vomiting steroids Allergy Rash/Hives, Uncoded 03/14/19 17:20 nausea,head ache Physical Exam Vitals: Vital Signs Temp Pulse Resp BP BP Pulse Ox 03/22/19 09:59 111/57 03/22/19 07:00 98.3 F 72 14 93/55 98 03/22/19 04:47 90/58 03/22/19 02:52 99.7 F H 88/60 03/22/19 01:26 101.3 F H 86 18 82/54 92 L 03/21/19 19:34 99.2 F 81 18 120/65 03/21/19 16:43 99.5 F 78 18 101/72 Intake and Output 03/22/19 03/22/19 03/22/19 06:59 14:59 22:59 Intake Total 540 Balance 540 Intake: Oral 540 GENERAL DESCRIPTION: Middle-aged female lying in bed, no distress. No tachypnea or accessory muscle of respiration use. HEENT: Shows Pallor , no scleral icterus. Oral mucous membrane is dry. No pharyngeal erythema or thrush NECK: Trachea central, no thyromegaly. LUNGS: Unlabored breathing. Decreased breath sound at the base. No wheeze or crackle. HEART: S1, S2, regular rate and rhythm. No loud murmur ABDOMEN: Soft, no tenderness , guarding or rigidity, no organomegaly EXTREMITIES: No edema of feet. SKIN: No rash, no masses palpable. Lumbar surgical site looks clean with no redness or any drainage was noticed NEUROLOGICAL: The patient is awake, alert, oriented x3, mood and affect normal. Results CBC & Chem 7: 03/23/19 06:08 03/20/19 07:12 Labs: Abnormal Lab Results - Last 24 Hours (Table) 03/22/19 Range/Units 06:56 WBC 15.7 H (3.8-10.6) k/uL RBC 3.48 L (3.80-5.40) m/uL Hgb 10.6 L (11.4-16.0) gm/dL Hct 31.7 L (34.0-46.0) % Neutrophils # 11.7 H (1.3-7.7) k/uL Assessment and Plan Assessment: 1-patient with postoperative fever and leukocytosis in this patient who is status post extensive lumbar surgery with laminectomy and fusion along with decompression likely reactive versus pulmonary atelectasis clinic suspicious low for underlying infection but not entirely excluded (1) Postoperative fever Current Visit: Yes Status: Acute Code(s): R50.82 - POSTPROCEDURAL FEVER SNOMED Code(s): 930754321 (2) Leukocytosis Current Visit: Yes Status: Acute Code(s): D72.829 - ELEVATED WHITE BLOOD CELL COUNT, UNSPECIFIED SNOMED Code(s): 695219388 Plan: 1-blood cultures, UA and a culture has been ordered will be followed 2-chest x-ray PA and lateral 3-we will also check inflammatory markers 4-patient advised incentive spirometry every hour on the hour 5-agree with empiric Zosyn 3.375 g every 8 hours while waiting for the cultures to finalize and condition to stabilized We will follow on clinical condition and cultures to further adjust medication if needed Thank you for this consultation will follow this patient with you Time with Patient: Greater than 30
--- NOTE | 2019-03-23 10:54 | P.PN ---
<Ayah Ralph - Last Filed: 03/23/19 10:49> Subjective Progress Note Date: 03/23/19 Principal diagnosis: Lumbar stenosis and radiculopathy. History of L5-S1 fusion. The patient has had long-standing issues in their lower back and lower extremities. In the past she had undergone decompression and fusion at L5-S1 for spinal stenosis and lower extremity radiculopathy and had done well with that procedure. Over the years however she started developed further back pain and worsening issues at her lumbar spine and her bilateral lower extremities. She was found have adjacent level degeneration at L4 5 as well as dynamic spondylolisthesis L3 4 and L4 5 with final stenosis and degenerative disc disease. Her imaging correlate well with her low back and lower extremity s ymptoms. She is having worsening symptoms despite aggressive conservative care. The patient has been through conservative treatment. We discussed various treatment options including surgery, and the patient wishes to proceed with surgery We discussed the risk, patient's alternatives and benefits of surgery including but not limited to, risk of bleeding risk of infection, risk of need for further surgery, risk of decreased, loss of motion, muscle function, malunion nonunion, hardware failure, nerve damage, paralysis, heart attack, blindness and . She is status postremoval of hardware L5-S1 PLDF L3 4 & L4 5. She is post op day 3.. Complains of worsening low back and hip pain. She had a very rough night last night and is very emotional and tearful today. She states that antibiotics were started last evening to which she had a reaction. She clamped off her own IV to stop the antibiotic and has since refused any other antibiotics. She states that she does not care for the nurse who was taking care of her last night. She states that she continues to have low back and hip pain. The [place] is making her nauseous so she is only taking the Dilaudid at this time. No complaint of neurological deficits to lower extremities. Vital signs and labs are stable. Objective - Vital Signs Vital signs: Vital Signs Temp 98 F 03/23/19 07:00 Pulse 77 03/23/19 07:00 Resp 12 03/23/19 07:00 BP 100/62 03/23/19 07:00 Pulse Ox 99 03/23/19 07:00 Intake & Output 03/22/19 03/23/19 03/23/19 18:59 06:59 18:59 Intake Total 240 Balance 240 Intake: Oral 240 Other: Voiding Method Toilet # Voids 1 1 - Exam Alert and Oriented x 3. She is laying on her right side and appears fairly uncomfortable at this time. Her incision looks good with no sign of infection. No erythema, minimal swelling. No drainage on the dressing or actively. She has full foot and ankle motion bilaterally. Normal sensation to toes. No neur ologic deficits noted on exam. - Labs CBC & Chem 7: 03/23/19 06:08 03/20/19 07:12 Labs: Abnormal Lab Results - Last 24 Hours (Table) 03/22/19 03/23/19 03/23/19 Range/Units 21:39 06:08 06:08 WBC 12.3 H (3.8-10.6) k/uL RBC 3.30 L (3.80-5.40) m/uL Hgb 9.9 L (11.4-16.0) gm/dL Hct 29.5 L (34.0-46.0) % Neutrophils # 9.2 H (1.3-7.7) k/uL ESR 91 H (0-20) mm/hr C-Reactive Protein 353.1 H (<10.0) mg/L Urine Protein Trace H (Negative) Urine Blood Moderate H (Negative) Urine RBC 10 H (0-5) /hpf Urine Bacteria Rare H (None) /hpf Microbiology - Last 24 Hours (Table) 03/22/19 21:39 Urine Culture - Preliminary Urine,Voided Assessment and Plan (1) Lumbar foraminal stenosis Current Visit: Yes Status: Acute Code(s): M48.061 - SPINAL STENOSIS, LUMBAR REGION WITHOUT NEUROGENIC EMMETT SNOMED Code(s): 076675503 (2) Lumbar radiculopathy Current Visit: Yes Status: Acute Code(s): M54.16 - RADICULOPATHY, LUMBAR REGION SNOMED Code(s): 328957047 (3) Status post lumbar spinal fusion Current Visit: Yes Status: Acute Code(s): Z98.1 - ARTHRODESIS STATUS SNOMED Code(s): 89405588307292 Plan: The clinical findings are discussed with the patient. We will change her to Ultram for pain. I have discussed the case with the nurse. I would hold off on any antibiotics at this time. Her white count is coming down to normal. We will try to get her pain controlled and plan discharge to home tomorrow. <Yovana Meza - Last Filed: 03/23/19 12:15> Objective - Vital Signs Vital signs: Vital Signs Temp 98 F 03/23/19 07:00 Pulse 77 03/23/19 07:00 Resp 12 03/23/19 07:00 BP 100/62 03/23/19 07:00 Pulse Ox 99 03/23/19 07:00 Intake & Output 03/22/19 03/23/19 03/23/19 18:59 06:59 18:59 Intake Total 240 Balance 240 Intake: Oral 240 Other: Voiding Method Toilet # Voids 1 1 - Labs CBC & Chem 7: 03/23/19 06:08 03/20/19 07:12 Labs: Abnormal Lab Results - Last 24 Hours (Table) 03/22/19 03/23/19 03/23/19 Range/Units 21:39 06:08 06:08 WBC 12.3 H (3.8-10.6) k/uL RBC 3.30 L (3.80-5.40) m/uL Hgb 9.9 L (11.4-16.0) gm/dL Hct 29.5 L (34.0-46.0) % Neutrophils # 9.2 H (1.3-7.7) k/uL ESR 91 H (0-20) mm/hr C-Reactive Protein 353.1 H (<10.0) mg/L Urine Protein Trace H (Negative) Urine Blood Moderate H (Negative) Urine RBC 10 H (0-5) /hpf Urine Bacteria Rare H (None) /hpf Microbiology - Last 24 Hours (Table) 03/22/19 21:39 Urine Culture - Preliminary Urine,Voided Assessment and Plan Plan: The patient is seen and examined today at bedside. I agree with debility of note. Patient feels that she is making some progress over the past couple hours as day infuse to progress. She was having significant pain toward her back and having around toward her right lower quadrant. She was having little bit nausea after having some Dilaudid that is resolving. Her headaches from the antibiotic in her pain from the antibiotics seem to be settling down as well. She still having little bit of a tough time after she feels she was making such good progress. We'll see how she continues to make progress today in light of her difficulty with pain medications. She has been trying some Valium as well as Ultram I think that is okay given her difficulty with her other medicines. Hopefully she'll continue to make some progress to the day. She is no longer having fevers and her white count is decreasing. She may be ready for discharge home tomorrow.
[2019-03-23] MEDS: traMADol 50 MG TAB PO PRN ×2 (11:01→19:21)
--- NOTE | 2019-03-23 11:06 | P.PN ---
Subjective This is a pleasant 58 years old female with past medical history of fibromyalgia, GERD, hyperlipidemia, muscular skeletal disorder, osteoarthritis. Patient is a known case of spondylo-listhesis with spinal stenosis at L3 to 4, and L4 to 5, secondary to degenerative disc disease, presents because of elective surgery for failed conservative management for her low back pain and bilateral lower extremity radiculopathy. She is a status post Laminectomy and decompression L3-4 & L4-5 with bilateral foraminotomies and wide decompression Patient currently lying in bed not in distress, she's complaining from pain at the surgical site about 5/10 which aggravated by movement. Wound drain is in place. She is currently receiving IV fluids at 75 mL/h. She denies chest pain or dyspnea. No abdominal pain. No dizziness. No other complaints. No i tching. She denies history of smoking, alcohol or illicit drug But this looks stable, blood pressure was low last night at 91/54, currently 130/59. Left showing mild leukocytosis of 10.9 K, hemoglobin 10.6. Electrolytes and creatinine are within normal limits. 03/21/2019 Patient is taking Dilaudid for her back pain however that make her low P with little bothering headache although she takes only 0.5 mg of Dilaudid. Headache is controlled by Tylenol, however her lower back pain is rated as 6/10 in severity which could aggravated by movement. Furosemide is suggested to see that can help the patient. Patient does not want morphine stating that given her ALLERGY and hives. She is tolerating diet well with no abdominal pain. She is passing gases only. Hemodynamically stable. Blood pressure 96/63. She is currently in normal sinus 75 mL/h. Her WBC today is 14.2 K, went and up from 10.9 yesterday. We'll keep monitoring her WBC. 03/22/2019 Patient still complaining of from back pain, and the surgical site which is expected however she still having to Dilaudid for pain which states that gives her Headache, however patient today had a fever of 101.3. And her WBC went up to 15.7 K. Patient denies chest pain or dyspnea or coughing however she complained from frequent urination like every hour. She has no dysuria or suprapubic tenderness. No rash. No diarrhea actually she is constipated. Ligament order chest x-ray, urinalysis, blood culture and start the patient empi rically on Zosyn, while continue with IV fluids 03/23/2019 Patient still complaining from back pain about 90/10 and some headache was 6/10, however she denies blurred vision or weakness/numbness in arms or legs. Meningeal signs are absent. This is a patient she had fever and worsening leukocytosis, Zosyn was started and pancultures was ordered. However patient could not tolerate and the first dose of Zosyn was stopped. Primary team preferred to stop the antibiotics and keep monitoring. Infectious disease on the case. Chest x-ray showing no infiltrate. Urinalysis is still suspicious of infection, and contour. The urine analysis. Follow-up urine and blood culture and monitor WBC. Continue with Benadryl when necessary for itching blood pressure on the low side, patient states that blood pressure always about 90s/60s, however on admission her systolic blood pressure was 120-140, keep with normal saline currently Objective - Vital Signs Vital signs: Vital Signs Temp 98 F 03/23/19 07:00 Pulse 77 03/23/19 07:00 Resp 12 03/23/19 07:00 BP 100/62 03/23/19 07:00 Pulse Ox 99 03/23/19 07:00 Intake & Output 03/22/19 03/23/19 03/23/19 18:59 06:59 18:59 Intake Total 240 Balance 240 Intake: Oral 240 Other: Voiding Method Toilet # Voids 1 1 - Exam GENERAL: The patient is alert and oriented x3, not in any acute distress. Well developed, well nourished. HEENT: Pupils are round and equally reacting to light. EOMI. No scleral icterus. No conjunctival pallor. Normocephalic, atraumatic. No pharyngeal erythema. No thyromegaly. CARDIOVASCULAR: S1 and S2 present. No murmurs, rubs, or gallops. PULMONARY: Chest is clear to auscultation, no wheezing or crackles. ABDOMEN: Soft, nontender, nondistended, normoactive bowel sounds. No palpable organomegaly. -MUSCULOSKELETAL: No joint swelling or deformity. back wound is on dressing , with expected tenderness EXTREMITIES: No cyanosis, clubbing, or pedal edema. NEUROLOGICAL: Gross neurological examination did not reveal any focal deficits. strength exam is limited by post op pain . sensation is intact SKIN: No rashes. No petechiae - Labs CBC & Chem 7: 03/23/19 06:08 03/20/19 07:12 Labs: Abnormal Lab Results - Last 24 Hours (Table) 03/22/19 03/23/19 03/23/19 Range/Units 21:39 06:08 06:08 WBC 12.3 H (3.8-10.6) k/uL RBC 3.30 L (3.80-5.40) m/uL Hgb 9.9 L (11.4-16.0) gm/dL Hct 29.5 L (34.0-46.0) % Neutrophils # 9.2 H (1.3-7.7) k/uL ESR 91 H (0-20) mm/hr C-Reactive Protein 353.1 H (<10.0) mg/L Urine Protein Trace H (Negative) Urine Blood Moderate H (Negative) Urine RBC 10 H (0-5) /hpf Urine Bacteria Rare H (None) /hpf Microbiology - Last 24 Hours (Table) 03/22/19 21:39 Urine Culture - Preliminary Urine,Voided Assessment and Plan Assessment: -Systemic inflammatory response with fever, tachycardia and leukocytosis. Rule out sepsis. Could be postop fever -Increased frequency of urination, rule out UTI -spondylo-listhesis with spinal stenosis at L3 to 4, and L4 to 5, secondary to degenerative disc disease, tatus post Laminectomy and decompression L3-4 & L4-5 with bilateral foraminotomies and wide decompression -Headache, mostly related to Dilaudid side effects. Continue with pain medication as Tylenol/furosemide -Chronic low back pain with lower extremity radiculopathy , status post prior fusion of L5-S1. -Chronic fibromyalgia -GERD -Hyperlipidemia -Muscular skeletal disorder -Primary osteoarthritis Plan: This is a pleasant 58 years old female who presents for laminectomy for her spinal stenosis and degenerative disease. Continue with pain management. Continue with IV fluids at the current rate.monitor wbc. re-Check urinalysis, follow-up urine and blood culture. Antibiotics as per primary team and ID team. Pain management as per primary team. Headache could be treated with Tylenol/Fioricet. Labs and medication were reviewed.. Continue same treatment. Continue with symptomatic treatment. Resume home medication. Monitor lytes and vitals. DVT and GI prophylaxis. Further recommendations of the clinical course of the patient DVT prophylaxis and pain management as per primary surgical team Thank you for consulting us
[2019-03-23 13:46] LABS: Appearance,Urine Clear (Clear); Bacteria,Urine Rare /hpf; Bilirubin,Urine Negative (Negative); Blood,Urine Moderate (Negative); Color,Urine Light Yellow; Glucose,Urine (UA) Negative (Negative); Ketones,Urine Negative (Negative); Leukocyte Esterase,Urine Negative (Negative); Mucus,Urine Rare /hpf; Nitrite,Urine Negative (Negative); PH, Urine 6.5 (5.0-8.0); Protein,Urine Negative (Negative); RBC,Urine 19 /hpf (0-5); Specific Gravity,Urine 1.011 (1.001-1.035); Squamous Epithelial Cell,Urine <1 /hpf (0-4); Urobilinogen,Urine <2.0 mg/dL (<2.0); WBC,Urine <1 /hpf (0-5)
--- NOTE | 2019-03-23 18:44 | PN ---
PROGRESS NOTE DATE OF SERVICE: 03/23/2019. REASON FOR FOLLOWUP: Postop fever and leukocytosis. INTERVAL HISTORY: The patient is currently afebrile. The patient apparently refused her IV antibiotic therapy with concern for her symptoms of itching around the nasopharyngeal area and not feeling well. The patient has no further fevers. Denies any headache. No chest pain. No cough. No abdominal pain. No diarrhea or any worsening pain to the lumbar spine area. PHYSICAL EXAMINATION: Blood pressure 100/62 with a pulse of 77, temperature 98. She is 99% on room air. General description is a middle-aged female lying in bed in no distress. Respiratory system: Unlabored breathing with decreased breath sounds at the bases. No wheeze. Heart S1, S2. Regular rate and rhythm. Abdomen soft, no tenderness. Extremities no edema of the feet. Surgical site is currently dressed up. No obvious drainage on the dressing. LABS: White count of 12.3. UA has been negative. Blood culture so far negative. DIAGNOSTIC IMPRESSION AND PLAN: Patient with leukocytosis and fever with concern in this patient who is status post extensive lumbar surgery, likely reactive. Clinical suspicion low for underlying infection. We will monitor the patient closely off antibiotic therapy and cultures will follow. Continue supportive care. MMODL / IJN: [id number] /
[2019-03-23] MEDS: GABAPENTIN 300 MG CAP PO SCH (20:16)
[2019-03-23] MEDS: diphenhydrAMINE 25 MG CAP PO SCH (20:16)
[2019-03-24] MEDS: traMADol 50 MG TAB PO PRN ×2 (01:58→07:46)
[2019-03-24] MEDS: DIAZEPAM 2 MG TAB PO PRN (03:09)
[2019-03-24] MEDS: ONDANSETRON 4 MG/2 ML VIAL IVP PRN (04:01)
[2019-03-24] MEDS: HYDROmorphone 0.5 MG/0.5 ML SYRINGE IVP PRN (04:42)
[2019-03-24] MEDS: SODIUM CHLORIDE 0.9% 1,000 ML IV SCH ×2 (05:45→20:50)
[2019-03-24 07:22] LABS: Basophils % (A) 0 %; Eosinophils # (A) 0.5 k/uL (0-0.7); Eosinophils % (A) 6 %; HCT 29.8 % (34.0-46.0); HGB 9.9 gm/dL (11.4-16.0); Lymphocytes # (A) 1.9 k/uL (1.0-4.8); Lymphocytes % (A) 23 %; MCH 30.2 pg (25.0-35.0); MCHC 33.2 g/dL (31.0-37.0); Mean Platelet Volume 5.7; Monocytes # (A) 0.5 k/uL (0-1.0); Monocytes % (A) 6 %; Neutrophils # (A) 5.4 k/uL (1.3-7.7); Neutrophils % (A) 63 %; Platelet Count 322 k/uL (150-450); RBC 3.27 m/uL (3.80-5.40); RDW 12.9 % (11.5-15.5); WBC 8.5 k/uL (3.8-10.6)
[2019-03-24] MEDS ORDERED: CYCLOBENZAPRINE 10 MG TAB PO PRN (08:48)
--- NOTE | 2019-03-24 08:48 | P.PN ---
Progress Note - Text Progress Note Date: 03/24/19 Orthopedic Spine: History of present illness: Patient is a pleasant 58-year-old female who is seen and examined at the bedside following posterior lateral decompression and fusion performed Sunday. Patient states she has had significant difficulty over the weekend with pain control. She continues to have significant difficulty with oral medications due to significant nausea. Over the weekend she was prescribed an antibiotic medication after leukocytosis, which has been discontinued. She had a significant reaction to the antibiotic. Her WBC has normalized this morning. She continues to have significant low back pain and when present the pain radiates down the bilateral lower extremities greater than the right than the left. She has been using a walker to aid in ambulation. She has been able to ambulate to the restroom and was able to shower yesterday. She states when present her back pain is significantly debilitating. She does not feel she is able to be discharged home with her current level of pain. She is not e xperiencing any lower extremity weakness bilaterally. She was having a significant headache and was started on Fioricet which has helped improve her head atraumatically. She states she is known to take this medication outpatient setting previously. Her Bah catheter was previously discontinued and she has been voiding without difficulty. Her abdomen is soft nontender. She is not experiencing any abdominal pain. When present, she complains more pain radiating from the lumbar spine, around the right hip, towards the right groin, and down the anterior thigh towards the knee. Patient does admit to difficulty with oral pain medications following previous surgical interventions. She states Valium made her somewhat loopy yesterday. She has taken Flexeril previously with some benefit. Physical Exam Lumbar Fusion: Status post surgical day number 5 Patient is awake, alert, and oriented 3 Vital signs stable Good chest excursion with deep inspiration and expiration Abdomen soft nontender Dorsiflexion, plantarflexion, and extensor hallucis longus positive sustained bilaterally No signs or symptoms of DVT; no calf pain; pneumatic cuffs not currently intact bilateral lower extremities Dressing is clean, dry, and intact; no erythema, purulence, or signs of infection Dressing is removed and changed to nonstick Telfa and Tegaderm Hemovac drain was removed this morning Neurovascularly intact bilaterally lower extremities Assessment: L3-4 and L4-5 open posterior lateral decompression and fusion with transforaminal lumbar interbody fusion Removal of previous hardware L5-S1 Adjacent lumbar degenerative disc disease L3-4 and L4 to S5 spondylolisthesis History of previous fusion L5-S1 Low back pain with lower extremity radiculopathy Postoperative nausea Plan: 1. Patient will be discussed in detail with Dr. Stephen Meza. 2. Ambulate as tolerated; work with Physical Therapy to increase mobilization; she may continue using a walker to aid in ambulation as needed; prescription has been written and signed provided to case management for a wheeled walker for the patient to use at home when discharge 3. Continue pain control with IV and oral medications; we will continue to wean off IV medications in anticipation for discharge home tomorrow, 03/25/2019. We will plan to discontinue Valium. We'll plan to add Flexeril 10 mg 3 times a day for muscle spasm. MAPS has been reviewed on 03/21/2019 with an Overall Overdose Risk Score of 170 and a narcotic score of 40. An "Opiod Start Talking" Form has been signed and placed in the patient's chart. A prescription has been written for Antelope 7.5 mg/325 mg 1-2 tabs every 6 hours as need for pain, dispensed #56. Prescription has been sent to [facility]. Patient has had some difficulty with medication. We may plan to discontinue this prescription for probably different medication prior to discharge once patient's pain is more adequately controlled. Patient should avoid anti-inflammatory medications over the next 6 weeks postoperatively. She may resume other previously prescribed home medications. 4. Dressing to remain intact with Telfa and Tegaderm; patient may shower with dressing intact 5. Medical management can continue to manage patient for patient's other medical issues including headache; patient had been started on Fioricet. We discussed if she continues to experience headaches and this medication continues to provide improvement of her symptoms, it may be prescribed for the outpatient setting per medicine at the time of discharge. 6. We will continue to follow the patient closely; if the patient continues to improve, we will plan for discharge home tomorrow, 03/25/2019 7. Patient can follow-up with Reinier Steven PA-C or Dr. Stephen Meza at [facility] in 2-3 weeks following discharge
[2019-03-24] MEDS: HYDROmorphone 1 MG/ML 1 ML SYRINGE IVP PRN ×4 (09:55→23:17)
[2019-03-24] MEDS: HEPARIN SODIUM,PORCINE 5,000 UNIT/ML 1 ML VIAL SQ SCH ×3 (09:56→20:50)
[2019-03-24] MEDS: PANTOPRAZOLE 40 MG TABLET PO SCH (09:56)
[2019-03-24] MEDS: SENNOSIDES-DOCUSATE SODIUM 1 EACH TAB PO SCH (09:56)
[2019-03-24] MEDS ORDERED: ONDANSETRON 4 MG/2 ML VIAL IVP STA (09:58)
[2019-03-24] MEDS: BUTALB/APAP/CAFF 50-325-40MG TAB PO PRN (11:33)
--- NOTE | 2019-03-24 12:25 | P.PN ---
Subjective This is a pleasant 58 years old female with past medical history of fibromyalgia, GERD, hyperlipidemia, muscular skeletal disorder, osteoarthritis. Patient is a known case of spondylo-listhesis with spinal stenosis at L3 to 4, and L4 to 5, secondary to degenerative disc disease, presents because of elective surgery for failed conservative management for her low back pain and bilateral lower extremity radiculopathy. She is a status post Laminectomy and decompression L3-4 & L4-5 with bilateral foraminotomies and wide decompression Patient currently lying in bed not in distress, she's complaining from pain at the surgical site about 5/10 which aggravated by movement. Wound drain is in place. She is currently receiving IV fluids at 75 mL/h. She denies chest pain or dyspnea. No abdominal pain. No dizziness. No other complaints. No i tching. She denies history of smoking, alcohol or illicit drug But this looks stable, blood pressure was low last night at 91/54, currently 130/59. Left showing mild leukocytosis of 10.9 K, hemoglobin 10.6. Electrolytes and creatinine are within normal limits. 03/21/2019 Patient is taking Dilaudid for her back pain however that make her low P with little bothering headache although she takes only 0.5 mg of Dilaudid. Headache is controlled by Tylenol, however her lower back pain is rated as 6/10 in severity which could aggravated by movement. Furosemide is suggested to see that can help the patient. Patient does not want morphine stating that given her ALLERGY and hives. She is tolerating diet well with no abdominal pain. She is passing gases only. Hemodynamically stable. Blood pressure 96/63. She is currently in normal sinus 75 mL/h. Her WBC today is 14.2 K, went and up from 10.9 yesterday. We'll keep monitoring her WBC. 03/22/2019 Patient still complaining of from back pain, and the surgical site which is expected however she still having to Dilaudid for pain which states that gives her Headache, however patient today had a fever of 101.3. And her WBC went up to 15.7 K. Patient denies chest pain or dyspnea or coughing however she complained from frequent urination like every hour. She has no dysuria or suprapubic tenderness. No rash. No diarrhea actually she is constipated. Ligament order chest x-ray, urinalysis, blood culture and start the patient empi rically on Zosyn, while continue with IV fluids 03/23/2019 Patient still complaining from back pain about 90/10 and some headache was 6/10, however she denies blurred vision or weakness/numbness in arms or legs. Meningeal signs are absent. This is a patient she had fever and worsening leukocytosis, Zosyn was started and pancultures was ordered. However patient could not tolerate and the first dose of Zosyn was stopped. Primary team preferred to stop the antibiotics and keep monitoring. Infectious disease on the case. Chest x-ray showing no infiltrate. Urinalysis is still suspicious of infection, and contour. The urine analysis. Follow-up urine and blood culture and monitor WBC. Continue with Benadryl when necessary for itching blood pressure on the low side, patient states that blood pressure always about 90s/60s, however on admission her systolic blood pressure was 120-140, keep with normal saline currently 03/24/2019 Patient is complaining of from significant and severe back pain radiating to her leg which is similar in the last few days but is more severe this morning because Dilaudid was held for trial of more oral medication like Ultram [place] however patient still have significant pain and Dilaudid is going to be provided. Also she has some headache similar to previous days with no weakness or abnormal sensation. She is fully awake and oriented. No vomiting but have some nausea which is controlled by Zofran. Her WBC came back to normal and patient is afebrile since 03/22/2019, patient is off antibiotics. Pending culture results. Most likely this is postop fever and reaction. pt also with microscopic hematuria , on several samples , we recommend urologist evaluation , pt is informed and risks including but not limited to cancer and stone are explained for the pt Objective - Vital Signs Vital signs: Vital Signs Temp 99.2 F 03/24/19 07:00 Pulse 74 03/24/19 07:00 Resp 16 03/24/19 07:00 BP 112/74 03/24/19 07:00 Pulse Ox 97 03/24/19 07:00 Intake & Output 03/23/19 03/24/19 03/24/19 18:59 06:59 18:59 Intake Total 240 20 Balance 240 20 Intake: Oral 240 20 Other: # Voids 3 1 - Exam GENERAL: The patient is alert and oriented x3, not in any acute distress. Well developed, well nourished. HEENT: Pupils are round and equally reacting to light. EOMI. No scleral icterus. No conjunctival pallor. Normocephalic, atraumatic. No pharyngeal erythema. No thyromegaly. CARDIOVASCULAR: S1 and S2 present. No murmurs, rubs, or gallops. PULMONARY: Chest is clear to auscultation, no wheezing or crackles. ABDOMEN: Soft, nontender, nondistended, normoactive bowel sounds. No palpable organomegaly. -MUSCULOSKELETAL: No joint swelling or deformity. back wound is on dressing , with expected tenderness EXTREMITIES: No cyanosis, clubbing, or pedal edema. NEUROLOGICAL: Gross neurological examination did not reveal any focal deficits. strength exam is limited by post op pain . sensation is intact SKIN: No rashes. No petechiae - Labs CBC & Chem 7: 03/24/19 06:50 03/20/19 07:12 Labs: Abnormal Lab Results - Last 24 Hours (Table) 03/23/19 03/24/19 Range/Units 13:15 06:50 RBC 3.27 L (3.80-5.40) m/uL Hgb 9.9 L (11.4-16.0) gm/dL Hct 29.8 L (34.0-46.0) % Urine Blood Moderate H (Negative) Urine RBC 19 H (0-5) /hpf Urine Bacteria Rare H (None) /hpf Urine Mucus Rare H (None) /hpf Microbiology - Last 24 Hours (Table) 03/22/19 16:23 Blood Culture - Preliminary Blood No Growth after 24 hours 03/22/19 21:39 Urine Culture - Preliminary Urine,Voided Assessment and Plan Assessment: -Systemic inflammatory response with fever, tachycardia and leukocytosis. Rule out sepsis. Mostly due to postop fever -Increased frequency of urination, pt has microscopic hematuria , we recommend urologist evaluation -spondylo-listhesis with spinal stenosis at L3 to 4, and L4 to 5, secondary to degenerative disc disease, tatus post Laminectomy and decompression L3-4 & L4-5 with bilateral foraminotomies and wide decompression -Headache, mostly related to Dilaudid side effects. Continue with pain medica tion as Tylenol/furosemide -Chronic low back pain with lower extremity radiculopathy , status post prior fusion of L5-S1. -Chronic fibromyalgia -GERD -Hyperlipidemia -Muscular skeletal disorder -Primary osteoarthritis Plan: This is a pleasant 58 years old female who presents for laminectomy for her spinal stenosis and degenerative disease. Continue with pain management. Continue with IV fluids at the current rate.monitor wbc.we recommend urologist evaluation for her microscopic hematuria , follow-up urine and blood culture. Antibiotics as per primary team and ID team. Pain management as per primary team. Headache could be treated with Tylenol/Fioricet. Labs and medication were reviewed.. Continue same treatment. Continue with symptomatic treatment. Resume home medication. Monitor lytes and vitals. DVT and GI prophylaxis. Further recommendations of the clinical course of the patient DVT prophylaxis and pain management as per primary surgical team Thank you for consulting us
[2019-03-24] MEDS: MAGNESIUM HYDROXIDE 2,400 MG/10 ML CUP PO PRN (14:46)
--- NOTE | 2019-03-24 16:19 | PN ---
PROGRESS NOTE DATE OF SERVICE: 03/24/2019 REASON FOR FOLLOWUP: Postoperative fever and leukocytosis. INTERVAL HISTORY: The patient is currently afebrile. The patient is feeling better. The patient denies having any chest pain or shortness of breath or cough. No nausea, no vomiting. Her back pain has improved. No nausea, vomiting and no diarrhea. PHYSICAL EXAMINATION: Blood pressure 112/74 with a pulse of 74, temperature 99.2. She is 97% on room air. General description is a middle-aged female up in the bed in no distress. RESPIRATORY SYSTEM: Unlabored breathing with decreased breath sounds at the bases. HEART: S1, S2. Regular rate and rhythm. ABDOMEN: Soft. No tenderness. EXTREMITIES: No edema of the feet. LABS: Hemoglobin 9.9, white count 8.5. Blood and urine cultures have been negative. DIAGNOSTIC IMPRESSION AND PLAN: Patient with a postoperative fever and leukocytosis, possibly reactive. Clinically doubt infectious etiology. Patient has shown clinical improvement without any antibiotic therapy. Recommend to monitor the patient closely off antibiotic. Continue with supportive care. MMODL / IJN: [id number] /
[2019-03-24] MEDS: diphenhydrAMINE 25 MG CAP PO SCH (20:49)
[2019-03-24] MEDS: GABAPENTIN 300 MG CAP PO SCH (20:49)
[2019-03-25] MEDS: LACTATED RINGERS 1,000 ML IV SCH (00:01)
[2019-03-25] MEDS: BUTALB/APAP/CAFF 50-325-40MG TAB PO PRN (01:20)
[2019-03-25] MEDS: HYDROmorphone 1 MG/ML 1 ML SYRINGE IVP PRN ×2 (05:22→11:06)
[2019-03-25] MEDS: ONDANSETRON 4 MG/2 ML VIAL IVP PRN (05:25)
[2019-03-25 08:31] VITALS: BP 129/82; PULSE 72; RESP 16; TEMP 98
--- NOTE | 2019-03-25 09:14 | P.DS ---
Providers Date of admission: 03/19/19 10:17 Expected date of discharge: 03/25/19 Attending physician: Yovana Meza Consults: 03/19/19 16:05 Consult Physician Routine Consulting Provider: Leelee Pablo Consult Reason/Comments: Medical management Do you want consulting provider notified?: Yes 03/22/19 15:35 Consult Physician Routine Consulting Provider: Fermin العراقي Consult Reason/Comments: Elevated WBC Do you want consulting provider notified?: Yes Primary care physician: Arthur Valles - Discharge Diagnosis(es) (1) Low back pain Current Visit: Yes Status: Acute (2) Radiculopathy with lower extremity symptoms Current Visit: Yes Status: Acute (3) History of lumbosacral spine surgery Current Visit: Yes Status: Acute (4) Nausea Current Visit: Yes Status: Acute (5) Status post lumbar spinal fusion Current Visit: Yes Status: Acute Hospital Course: This is a pleasant 58-year-old female who presented with L3-4 and L4-5 spondylolisthesis and spinal canal stenosis, adjacent level lumbar degenerative disc disease, history of previous fusion L5-S1, low back pain, lower extremity radiculopathy, and retained hardware at L5-S1 failed outpatient conservative therapy. She admitted for L3-4 and L4-5 open posterior lateral decompression and fusion with transforaminal lumbar interbody fusion and removal of previous hardware at L5-S1. Patient was initially progressing quite well postoperatively but had exacerbation of back pain over the weekend. She had difficulty with pain control with oral medications due to significant nausea. We have tried multiple oral medications without significant control her symptoms without significant exacerbation of nausea. Since yesterday, she has continued to receive IV Dilaudid and Zofran for control her symptoms. She has been able take the Dilaudid less frequently. She does feel she may be able to be discharged home with oral Dilaudid and nausea medication. She feels better this morning as compared to yesterday. Her back pain and lower extremity pain is better controlled. She took one dose of Flexeril as prescribed yesterday which made her significantly drowsy. She is not taking this medication since. She's been able to ambulate to the restroom and has been able to shower. She's been ambulating with assistance of a walker. She has not had a bowel movement but is passing gas and her abdomen is soft. She denies any abdominal pain. She is urinating without difficulty. She is eating without difficulty. Condition on day of discharge stable. Patient will be discharged home. Patient was cleared preoperatively for surgery by her primary care provider. Patient currently denies any nausea, vomiting, fever, or chills. Patient was experiencing some leukocytosis over the weekend with a WBC of 15.7 which is now normalized at 8.5. Patient may shower without a dressing intact. Dressing has been removed at the bedside. Patient should keep Steri-Strips intact and allow them to fall off naturally. Patient should refrain from driving until at least after their first follow-up appointment in the office. Patient should avoid excessive bending, lifting, and twisting; no lifting greater than 10 pounds. MAPS has been reviewed on 03/21/2019 and again today, 03/25/2019, with an Overall Overdose Risk Score of 170 and a narcotic score of 40. An "Opiod Start Talking" Form has been signed and placed in the patient's chart. A prescription was written for [place] 7.5 mg/325 mg 1-2 tabs every 6 hours as need for pain, dispensed #56 and send to [facility] at [facility]. This medication has been discussed in detail with the pharmacy and will be canceled due to significant nausea. Prescriptions have been written for Dilaudid 4 mg tablet, take 1 tab every 6 hours as needed for pain, dispensed #28 and Zofran 4 mg tablet, take 1 tablet every 6 hours as needed for nausea dispensed #60. These prescriptions have been sent to [facility] at [facility] and these prescriptions have been discussed with the pharmacy. Patient should avoid anti-inflammatory medications over the next 6 weeks postoperatively. She may resume other previously prescribed home medications Prescription for a walker was also signed and provided to case management. This walker has been provided to the patient. She may use this walker to aid in ambulation as needed. Physical Exam on day of discharge: Patient is awake, alert, and oriented 3 Vital signs stable Good chest excursion with deep inspiration and expiration Abdomen soft nontender No signs or symptoms of DVT; no calf pain Extensor hallucis longus, plantarflexion, and dorsiflexion positive sustained bilateral lower extremities Incision is clean, dry, and intact; no erythema, purulence, or signs of infection No active drainage from the incision site Tegaderm dressing and non-stick Telfa has been removed; half of the Steri-Strips remain intact and the other half fallen off Procedures: L3-4 and L4-5 open posterior lateral decompression and fusion with transforaminal lumbar interbody fusion and removal of previous hardware at L5-S1 Patient Condition at Discharge: Stable Plan - Discharge Summary Discharge Rx Participant: Yes New Discharge Prescriptions: New HYDROmorphone [Dilaudid] 4 mg PO Q6H PRN 7 Days #28 tab PRN Reason: Pain Ondansetron [Zofran] 4 mg PO Q6HR PRN #60 tab PRN Reason: Nausea No Action diphenhydrAMINE [Benadryl] 25 mg PO HS Gabapentin [Neurontin] 300 mg PO HS Omeprazole 20 mg PO Q72H Ibuprofen [Motrin] 800 mg PO HS Acetaminophen Tab [Tylenol Tab] 650 mg PO Q4H PRN PRN Reason: Headache Discharge Medication List Gabapentin [Neurontin] 300 mg PO HS 09/26/18 [History] Ibuprofen [Motrin] 800 mg PO HS 09/26/18 [History] Omeprazole 20 mg PO Q72H 09/26/18 [History] diphenhydrAMINE [Benadryl] 25 mg PO HS 09/26/18 [History] Acetaminophen Tab [Tylenol Tab] 650 mg PO Q4H PRN 03/19/19 [History] HYDROmorphone [Dilaudid] 4 mg PO Q6H PRN 7 Days #28 tab 03/25/19 [Rx] Ondansetron [Zofran] 4 mg PO Q6HR PRN #60 tab 03/25/19 [Rx] Follow up Appointment(s)/Referral(s): Piotr Ponce MD [STAFF PHYSICIAN] - 1 Week (Urologist for your microscopic hematuria. Office will call you with your appointment date and time.) [facility] [NON-STAFF] - As Needed Arthur Valles MD [Primary Care Provider] - 1 Week (we recommend to check your blood tests with your doctor including white cell count) Reinier Steven PAC [PHYSICIAN POLICY SERVICES REPRESENTATIVE] - 04/04/19 9:30 am Activity/Diet/Wound Care/Special Instructions: 1. Patient may shower without a dressing intact. 2. Patient should keep Steri-Strips intact and allow them to fall off naturally. 3. Patient should refrain from driving until at least after their first follow- up appointment in the office. 4. Patient should avoid excessive bending, twisting, and lifting; no lifting greater than 10 pounds 5. May use a walker to aid in ambulation as needed 6. Take medications as prescribed 7. Do not soak in tub Discharge Disposition: HOME SELF-CARE
[2019-03-25] MEDS: MAGNESIUM HYDROXIDE 2,400 MG/10 ML CUP PO PRN (09:53)
[2019-03-25] MEDS: SENNOSIDES-DOCUSATE SODIUM 1 EACH TAB PO SCH (09:53)
[2019-03-25] MEDS: HEPARIN SODIUM,PORCINE 5,000 UNIT/ML 1 ML VIAL SQ SCH (09:53)
[2019-03-25] MEDS: SODIUM CHLORIDE 0.9% 1,000 ML IV SCH (12:20)
[2019-03-25] MEDS: ACETAMINOPHEN TAB 325 MG TAB PO PRN (12:48)
--- NOTE | 2019-03-25 14:28 | PN ---
PROGRESS NOTE DATE OF SERVICE: 03/25/2019 REASON FOR FOLLOWUP: Postop fevers and leukocytosis, likely reactive. INTERVAL HISTORY: The patient is currently afebrile. Patient is breathing comfortably. Denies having any chest pain, no shortness of breath. No cough. No nausea, no vomiting. Pain to the lower back is currently controlled. Did have bowel movements. No diarrhea. PHYSICAL EXAMINATION: Blood pressure 129/82 with a pulse of 72, temperature 98, she is 94% on room air. General description is a middle-aged female, lying in bed in no distress. Respiratory System: Unlabored breathing, clear to auscultation anteriorly. HEART: S1, S2. Regular rate and rhythm. ABDOMEN: Soft, no tenderness. LABS: Hemoglobin 9.8, white count 8.5. Blood and urine cultures have been negative. DIAGNOSTIC IMPRESSION AND PLAN: Patient with postoperative fever, leukocytosis likely reactive. Clinically, no evidence of infection. If the patient's culture remains to be negative, no need for antibiotic on discharge. MMODL / IJN: [id number] /
--- NOTE | 2019-03-25 16:13 | PN ---
PROGRESS NOTE DATE OF SERVICE: 03/25/2019 This 58-year-old woman who was admitted with spinal surgery is improving significantly. No chest pain. No palpitations. No fever. The patient is followed by Dr. Mehdi Hand in the outpatient setting. On exam, alert and oriented x3. The pulse is 72, blood pressure 120/80, respiration 16, temperature 98 degrees, pulse ox 94% on room air. HEENT: Conjunctivae normal. NECK: No jugular venous distention. CARDIOVASCULAR SYSTEM: S1, S2 muffled. RESPIRATORY SYSTEM: Breath sounds diminished at the bases. No rhonchi. No crackles. ABDOMEN: Soft, non-tender. LEGS: No edema. No swelling. NERVOUS SYSTEM: No focal deficit. EXAMINATION OF THE BACK: Status post surgery. LABS: WBC 8.5, hemoglobin 9.9. UA noted. ASSESSMENT: 1. Status post spondylolysis and spinal stenosis, L3-4 and L4-5, status post laminectomy and decompression of L3-4, L4-5, and bilateral foraminectomies and decompression. 2. Systemic inflammatory response syndrome with fever, tachycardia, leukocytosis, mostly postoperative fever. 3. Increased frequency of urination with microscopic hematuria. I recommend outpatient followup. 4. Headaches related to possibly Dilaudid; responded to Fioricet. 5. Chronic low back pain with degenerative joint disease with extremity radiculopathy with fusion of L5-S1. 6. Chronic fibromyalgia. 7. Gastroesophageal reflux disease. 8. Hyperlipidemia. 9. Musculoskeletal disorder. 10.Primary degenerative joint disease. RECOMMENDATIONS AND DISCUSSION: In this 58-year-old woman who presented with multiple complex medical issues, at this time patient had surgery. Patient improved significantly. I recommend resuming the home medications and follow closely with Dr. Mehdi Hand, who is the primary physician as well as the rest of the recommendations per Orthopedic Surgery and Infectious Disease. Further recommendations to follow. MMODL / IJN: [id number] /
== END 2019-03-25 13:38 | disposition home or self-care (01) | DRG 455 ==
LOC: 2ORMAIN 10:17 → 4SSUR 16:25
PROVIDERS: ADMIT Orthopaedic Surgery Orthopaedic Surgery of the Spine; ATTEND Orthopaedic Surgery Orthopaedic Surgery of the Spine
PROC: 0ST20ZZ Resection of Lumbar Vertebral Disc, Open Approach (ICD-10-PCS; principal; 2019-03-19 11:45)
PROC: 0SP004Z Removal of Internal Fixation Device from Lumbar Vertebral Joint, Open Approach (ICD-10-PCS; principal; 2019-03-19 11:45)
PROC: 0SG1071 Fusion of 2 or more Lumbar Vertebral Joints with Autologous Tissue Substitute, Posterior Approach, Posterior Column, Open Approach (ICD-10-PCS; principal; 2019-03-19 11:45)
PROC: 0SG10AJ Fusion of 2 or more Lumbar Vertebral Joints with Interbody Fusion Device, Posterior Approach, Anterior Column, Open Approach (ICD-10-PCS; principal; 2019-03-19 11:45)
PROC: 30233H0 Transfusion of Autologous Whole Blood into Peripheral Vein, Percutaneous Approach (ICD-10-PCS; principal; 2019-03-19 11:45)
DX: M51.16 Intervertebral disc disorders with radiculopathy, lumbar region (principal); M48.061 Spinal stenosis, lumbar region without neurogenic claudication; D72.829 Elevated white blood cell count, unspecified; E78.5 Hyperlipidemia, unspecified; G89.29 Other chronic pain; K21.9 Gastro-esophageal reflux disease without esophagitis; M19.91 Primary osteoarthritis, unspecified site; M43.16 Spondylolisthesis, lumbar region; M79.7 Fibromyalgia; R31.29 Other microscopic hematuria; R50.9 Fever, unspecified; Z79.891 Long term (current) use of opiate analgesic; Z79.899 Other long term (current) drug therapy; Z88.1 Allergy status to other antibiotic agents; Z88.5 Allergy status to narcotic agent; Z88.8 Allergy status to other drugs, medicaments and biological substances; R51 Headache; Z98.1 Arthrodesis status
CPT/HCPCS: 71045; 72020; 80048; 81001; 84132; 85025; 85652; 86140; 86850; 86891; 86900; 86901; 87040; 87086; 94760

== ENCOUNTER → 2019-04-18 | Outpatient (CLI) | payer OTHER ==
--- NOTE | 2019-04-18 10:37 | XR ---
EXAMINATION TYPE: XR KUB DATE OF EXAM: 04/18/2019 HISTORY: Pain Comparison: None.Single KUB is submitted for interpretation. Findings: Right renal calculi: None Visualized. Right ureteral calculi: None Visualized. Left renal calculi: None Visualized. Left ureteral calculi: None Visualized. Pelvic calcifications: None Visualized. Bowel gas pattern is unremarkable. No free air. No mass effects. Postoperative changes of lumbar la minectomy and fusion. IMPRESSION: 1. No distinct calculus identified with certainty.
== END ==
LOC: RADXRMAIN 10:12
PROVIDERS: ATTEND Urology
DX: N23 Unspecified renal colic (principal); R31.9 Hematuria, unspecified
CPT/HCPCS: 74018

== ENCOUNTER → 2019-05-15 | Outpatient (CLI) | payer OTHER ==
--- NOTE | 2019-05-15 10:33 | CT ---
EXAMINATION TYPE: CT urogram wo/w con DATE OF EXAM: 05/15/2019 HISTORY: Hematuria CT DLP: 1391.4mGycm Automated Exposure Control for Dose Reduction was Utilized. CONTRAST: CT scan of the abdomen and pelvis is performed without oral and without and with IV Contrast, patient injected with 100 mL of Isovue 300. Urogram protocol with 3-D reconstruction images created on [employer] workstation and reviewed. COMPARISON: KUB x-ray April 18, 2019. FINDINGS: KUB: Noncontrast images show no renal calculi bilaterally. Postcontrast images show symmetric cortica l medullary uptake and excretion from both kidneys without evidence of concerning solid or cystic estuardo al mass or hydronephrosis seen bilaterally. There are subcentimeter low density lesion medially upper and mid pole level left kidney image 32 series 11 measuring 8 mm too small to further characterize b ut is presumed benign. Some simple appearing parapelvic cyst centrally in the left kidney are seen. T here are few additional smaller cyst round low dense lesions in both kidneys presumed benign for refe rence right kidney coronal image 87 series 19 and upper to mid pole level and left kidney midpole lev el laterally image 88 series 19. Visualized portion of both ureters show no obvious abnormality. Visu alized portion of bladder is unremarkable with satisfactory distention noted. LUNG BASES: No significant abnormality is appreciated. LIVER/GB: No significant abnormality is appreciated. PANCREAS: No significant abnormality is seen. SPLEEN: No significant abnormality is seen. ADRENALS: No significant abnormality is seen. BOWEL: From scattered diverticulosis in the left and sigmoid colon without CT evidence for acute dive rticulitis. UTERUS/ADNEXA: Anteverted uterus. LYMPH NODES: No greater than 1cm abdominal or pelvic lymph nodes are appreciated. OSSEOUS STRUCTURES: Postsurgical change lower lumbar spine with posterior interpedicular rods and scr ews transfixing L3-S1 levels. Artificial disc material L5-S1 level. Metallic disc material L3-L4 and L4-L5 levels. Laminectomy defects and spinous process resection lumbosacral junction with extensive p osterior scar tissue. Prominent facet arthropathy noted lower lumbar levels. OTHER: Tiny fat-containing umbilical hernia. IMPRESSION: Source of hematuria not identified.
== END | disposition home or self-care (01) ==
LOC: RADCTMAIN 07:49
PROVIDERS: ATTEND Urology
DX: R31.0 Gross hematuria (principal); Z88.5 Allergy status to narcotic agent; Z88.1 Allergy status to other antibiotic agents; Z88.8 Allergy status to other drugs, medicaments and biological substances
CPT/HCPCS: 74178; 74400; Q9967

== ENCOUNTER 2019-06-21 07:47 | Emergency (ER) | payer OTHER ==
[2019-06-21 07:50] VITALS: TEMP 97.8
[2019-06-21] MEDS ORDERED: ONDANSETRON 4 MG/2 ML VIAL IVP STA (08:01)
[2019-06-21] MEDS ORDERED: HYDROmorphone 1 MG/ML 1 ML SYRINGE IVP STA (08:01)
[2019-06-21] MEDS ORDERED: SODIUM CHLORIDE 0.9% 1,000 ML IV STA (08:01)
[2019-06-21 08:24] LABS: Basophils # (A) 0.2 k/uL (0-0.2); Basophils % (A) 2 %; Eosinophils # (A) 0.4 k/uL (0-0.7); Eosinophils % (A) 4 %; HCT 39.8 % (34.0-46.0); HGB 12.8 gm/dL (11.4-16.0); Lymphocytes # (A) 2.3 k/uL (1.0-4.8); Lymphocytes % (A) 19 %; MCH 28.1 pg (25.0-35.0); MCHC 32.1 g/dL (31.0-37.0); MCV 87.5 fL (80.0-100.0); Monocytes # (A) 0.7 k/uL (0-1.0); Monocytes % (A) 6 %; Neutrophils # (A) 8.1 k/uL (1.3-7.7); Neutrophils % (A) 68 %; Platelet Count 362 k/uL (150-450); RBC 4.55 m/uL (3.80-5.40); RDW 13.8 % (11.5-15.5); WBC 11.9 k/uL (3.8-10.6)
[2019-06-21 08:28] LABS: Appearance,Urine Clear (Clear); Bilirubin,Urine Negative (Negative); Blood,Urine Moderate (Negative); Color,Urine Yellow; Glucose,Urine (UA) Negative (Negative); Ketones,Urine Negative (Negative); Leukocyte Esterase,Urine Negative (Negative); Mucus,Urine Rare /hpf; Nitrite,Urine Negative (Negative); Protein,Urine Trace (Negative); RBC,Urine 37 /hpf (0-5); Specific Gravity,Urine 1.024 (1.001-1.035); Squamous Epithelial Cell,Urine 6 /hpf (0-4); Urobilinogen,Urine <2.0 mg/dL (<2.0); WBC,Urine 2 /hpf (0-5)
[2019-06-21 08:38] LABS: ALT 22 U/L (4-34); AST 23 U/L (14-36); African American GFR (CKD) >90 (>60 ml/min/1.73 sqM); Albumin 4.5 g/dL (3.5-5.0); Alkaline Phosphatase 109 U/L (38-126); Amylase 63 U/L (30-110); Anion Gap 11 mmol/L; Blood Urea Nitrogen 20 mg/dL (7-17); Calcium 9.4 mg/dL (8.4-10.2); Carbon Dioxide 21 mmol/L (22-30); Chloride 110 mmol/L (98-107); Glucose 110 mg/dL (74-99); Non-African American GFR(CKD) 82 (>60 ml/min/1.73 sqM); Sodium 142 mmol/L (137-145); Total Bilirubin 0.5 mg/dL (0.2-1.3); Total Protein 8.3 g/dL (6.3-8.2)
[2019-06-21 08:50] LABS: Potassium 4.3 mmol/L (3.5-5.1)
--- NOTE | 2019-06-21 09:11 | CT ---
EXAMINATION TYPE: CT abdomen pelvis w con DATE OF EXAM: 06/21/2019 REFERENCE: Previous study dated 05/15/2019. HISTORY: abdominal pain HISTORY: Rt sided abd pain CT DLP: 1237.3 mGy Automated exposure control for dose reduction was used. TECHNIQUE: Helical acquisition through the abdomen and pelvis was obtained following the oral ingesti on of without Oral Contrast and following intravenous administration of 100 mL of Isovue 300. The sherrill a was reformatted in axial, coronal and sagittal projections. FINDINGS: Visualized portions of the lungs are clear. There is no pleural or pericardial fluid. The heart is not enlarged. Within the abdomen, the liver, spleen and gallbladder are normal. Both adrenal glands are normal. There is a 1 cm low attenuating lesion in the posterior aspect of mid polar region of the left kidney . This likely represents a cyst. The kidneys are otherwise normal. The pancreas is unremarkable. There is no significant retrocrural peritoneal, iliac or inguinal adenopathy. The bladder is unremarkable. Uterus and ovaries are normal. There are scattered diverticula within the sigmoid colon and elsewhere throughout the left side of th e colon without radiographic evidence of diverticulitis. There is some stranding in the surrounding t he cecum. The appendix is not visualized with certainty. Small bowel loops are normal in caliber. There is no free fluid and no free air. There is been a previous interpedicular fusion with spacer placement at L4, L5 and S1. There is been a posterior laminectomy at L4 and L5. IMPRESSION: 1. MILD INFLAMMATION SURROUNDING THE CECUM WITHOUT DEFINITE VISUALIZATION OF THE APPENDIX MAY REFLECT COLITIS. IF THIS PATIENT HAS NOT HAD THE APPENDIX REMOVED, APPENDICITIS WOULD NEED TO BE CONSIDERED. REPORT APPENDICITIS WELL OMENTAL INFARCTION COULD GIVE A SIMILAR APPEARANCE. 2. POSTSURGICAL CHANGE.
--- NOTE | 2019-06-21 09:31 | ED ---
Abdominal Pain HPI - General Chief Complaint: Abdominal Pain Stated Complaint: Abd Pain Time Seen by Provider: 06/21/19 07:52 Source: patient, RN notes reviewed Mode of arrival: ambulatory Limitations: no limitations - History of Present Illness Initial Comments: 59-year-old female presents emergency Department chief complaint right-sided abdominal pain. Patient states pain started yesterday and seemed to progress throughout the night to the point where she cannot tolerated. Patient states all the right upper and lower. She states she attempted the yesterday symptoms worsen. She denies any flank pain no dysuria no hematuria. She does have his tory kidney stones and states is not seems similar. She does not she's had a prior appendectomy and tubal ligation. No fevers or chills slight nausea no vomiting. Patient does not that she's had diarrhea. Patient denies any chest pain, shortness breath, headache or dizziness. - Related Data Home Medications Medication Instructions Recorded Confirmed Gabapentin [Neurontin] 300 mg PO HS 09/26/18 03/14/19 Ibuprofen [Motrin] 800 mg PO HS 09/26/18 03/14/19 Omeprazole 20 mg PO Q72H 09/26/18 03/19/19 diphenhydrAMINE [Benadryl] 25 mg PO HS 09/26/18 03/14/19 Acetaminophen Tab [Tylenol Tab] 650 mg PO Q4H PRN 03/19/19 03/19/19 Previous Rx's Medication Instructions Recorded Butalb/APAP/Caff 50-325-40Mg 1 tab PO Q6H PRN 7 Days #15 tablet 03/25/19 [Fioricet 50-325-40] HYDROmorphone [Dilaudid] 4 mg PO Q6H PRN 7 Days #28 tab 03/25/19 Ondansetron [Zofran] 4 mg PO Q6HR PRN #60 tab 03/25/19 Amoxicillin/Potassium Clav 1 tab PO Q12HR #14 tab 06/21/19 [Augmentin 875-125 Tablet] Allergies Allergy/AdvReac Type Severity Reaction Status Date / Time erythromycin base Allergy Rash/Hives, Verified 06/21/19 07:51 vomiting morphine Allergy Rash/Hives, Verified 06/21/19 07:51 vomiting steroids Allergy Rash/Hives, Uncoded 06/21/19 07:51 nausea,head ache Review of Systems ROS Statement: Those systems with pertinent positive or pertinent negative responses have been documented in the HPI. ROS Other: All systems not noted in ROS Statement are negative. Past Medical History Past Medical History: Fibromyalgia, GERD/Reflux, Musculoskeletal Disorder, Osteoarthritis (OA) Additional Past Medical History / Comment(s): Hx Diverticulitis X1. Spondylosis. History of Any Multi-Drug Resistant Organisms: None Reported Past Surgical History: Appendectomy, Back Surgery, Orthopedic Surgery, Tubal Ligation Additional Past Surgical History / Comment(s): Broke both legs more than once, bilateral knee surgery, lump removed from side, ganglion cyst removed, back fusion. Past Anesthesia/Blood Transfusion Reactions: Motion Sickness, Postoperative Nausea & Vomiting (PONV) Additional Past Anesthesia/Blood Transfusion Reaction / Comment(s): Grandmother/Mom PONV. Past Psychological History: No Psychological Hx Reported Smoking Status: Never smoker Past Alcohol Use History: None Reported Past Drug Use History: None Reported - Past Family History Mother Family Medical History: No Reported History General Exam Limitations: no limitations General appearance: alert, in no apparent distress Head exam: Present: atraumatic, normocephalic, normal inspection Eye exam: Present: normal appearance, PERRL, EOMI. Absent: scleral icterus, conjunctival injection, periorbital swelling Respiratory exam: Present: normal lung sounds bilaterally. Absent: respiratory distress, wheezes, rales, rhonchi, stridor Cardiovascular Exam: Present: regular rate, normal rhythm, normal heart sounds. Absent: systolic murmur, diastolic murmur, rubs, gallop, clicks GI/Abdominal exam: Present: soft, tenderness (There is moderate tenderness in the right upper and right lower abdomen), normal bowel sounds. Absent: distended, guarding, rebound, rigid Back exam: Absent: CVA tenderness (R), CVA tenderness (L) Neurological exam: Present: alert, oriented X3 Skin exam: Present: warm, dry, intact, normal color. Absent: rash Course Vital Signs 06/21/19 07:48 Temperature 97.8 F Pulse Rate 70 Respiratory 18 Rate Blood Pressure 122/75 O2 Sat by Pulse 100 Oximetry - Reevaluation(s) Reevaluation #1: 06/21/19 09:18 Patient reevaluated, patient pain is improved after IV pain medications. Medical Decision Making - Medical Decision Making Labs reveal mild leukocytosis, mild dehydration showing metabolic acidosis. Patient was hydrated, given pain medication. CT shows evidence of inflammatory changes around the cecum to consider colitis versus appendicitis the patient had prior appendectomy this is felt related to colitis. - Lab Data Result diagrams: 06/21/19 08:08 06/21/19 08:08 Lab Results 06/21/19 06/21/19 06/21/19 Range/Units 08:08 08:08 08:08 WBC 11.9 H (3.8-10.6) k/uL RBC 4.55 (3.80-5.40) m/uL Hgb 12.8 (11.4-16.0) gm/dL Hct 39.8 (34.0-46.0) % MCV 87.5 (80.0-100.0) fL MCH 28.1 (25.0-35.0) pg MCHC 32.1 (31.0-37.0) g/dL RDW 13.8 (11.5-15.5) % Plt Count 362 (150-450) k/uL Neutrophils % 68 % Lymphocytes % 19 % Monocytes % 6 % Eosinophils % 4 % Basophils % 2 % Neutrophils # 8.1 H (1.3-7.7) k/uL Lymphocytes # 2.3 (1.0-4.8) k/uL Monocytes # 0.7 (0-1.0) k/uL Eosinophils # 0.4 (0-0.7) k/uL Basophils # 0.2 (0-0.2) k/uL Sodium 142 (137-145) mmol/L Potassium 4.3 (3.5-5.1) mmol/L Chloride 110 H (98-107) mmol/L Carbon Dioxide 21 L (22-30) mmol/L Anion Gap 11 mmol/L BUN 20 H (7-17) mg/dL Creatinine 0.80 (0.52-1.04) mg/dL Est GFR (CKD-EPI)AfAm >90 (>60 ml/min/1.73 sqM) Est GFR (CKD-EPI)NonAf 82 (>60 ml/min/1.73 sqM) Glucose 110 H (74-99) mg/dL Plasma Lactic Acid Devante 1.2 (0.7-2.0) mmol/L Calcium 9.4 (8.4-10.2) mg/dL Total Bilirubin 0.5 (0.2-1.3) mg/dL AST 23 (14-36) U/L ALT 22 (4-34) U/L Alkaline Phosphatase 109 (38-126) U/L Total Protein 8.3 H (6.3-8.2) g/dL Albumin 4.5 (3.5-5.0) g/dL Amylase 63 (30-110) U/L Lipase 100 (23-300) U/L Urine Color Urine Appearance (Clear) Urine pH (5.0-8.0) Ur Specific [place] (1.001-1.035) Urine Protein (Negative) Urine Glucose (UA) (Negative) Urine Ketones (Negative) Urine Blood (Negative) Urine Nitrite (Negative) Urine Bilirubin (Negative) Urine Urobilinogen (<2.0) mg/dL Ur Leukocyte Esterase (Negative) Urine RBC (0-5) /hpf Urine WBC (0-5) /hpf Ur Squamous Epith Cells (0-4) /hpf Urine Mucus (None) /hpf 06/21/19 Range/Units 08:08 WBC (3.8-10.6) k/uL RBC (3.80-5.40) m/uL Hgb (11.4-16.0) gm/dL Hct (34.0-46.0) % MCV (80.0-100.0) fL MCH (25.0-35.0) pg MCHC (31.0-37.0) g/dL RDW (11.5-15.5) % Plt Count (150-450) k/uL Neutrophils % % Lymphocytes % % Monocytes % % Eosinophils % % Basophils % % Neutrophils # (1.3-7.7) k/uL Lymphocytes # (1.0-4.8) k/uL Monocytes # (0-1.0) k/uL Eosinophils # (0-0.7) k/uL Basophils # (0-0.2) k/uL Sodium (137-145) mmol/L Potassium (3.5-5.1) mmol/L Chloride (98-107) mmol/L Carbon Dioxide (22-30) mmol/L Anion Gap mmol/L BUN (7-17) mg/dL Creatinine (0.52-1.04) mg/dL Est GFR (CKD-EPI)AfAm (>60 ml/min/1.73 sqM) Est GFR (CKD-EPI)NonAf (>60 ml/min/1.73 sqM) Glucose (74-99) mg/dL Plasma Lactic Acid Devante (0.7-2.0) mmol/L Calcium (8.4-10.2) mg/dL Total Bilirubin (0.2-1.3) mg/dL AST (14-36) U/L ALT (4-34) U/L Alkaline Phosphatase (38-126) U/L Total Protein (6.3-8.2) g/dL Albumin (3.5-5.0) g/dL Amylase (30-110) U/L Lipase (23-300) U/L Urine Color Yellow Urine Appearance Clear (Clear) Urine pH 6.0 (5.0-8.0) Ur Specific [place] 1.024 (1.001-1.035) Urine Protein Trace H (Negative) Urine Glucose (UA) Negative (Negative) Urine Ketones Negative (Negative) Urine Blood Moderate H (Negative) Urine Nitrite Negative (Negative) Urine Bilirubin Negative (Negative) Urine Urobilinogen <2.0 (<2.0) mg/dL Ur Leukocyte Esterase Negative (Negative) Urine RBC 37 H (0-5) /hpf Urine WBC 2 (0-5) /hpf Ur Squamous Epith Cells 6 H (0-4) /hpf Urine Mucus Rare H (None) /hpf Disposition Clinical Impression: Colitis, Abdominal pain Disposition: HOME SELF-CARE Condition: Stable Instructions (If sedation given, give patient instructions): Abdominal Pain (ED) Additional Instructions: Please return to the Emergency Department if symptoms worsen or any other concerns. Prescriptions: Amoxicillin/Potassium Clav [Augmentin 875-125 Tablet] 1 tab PO Q12HR #14 tab Is patient prescribed a controlled substance at d/c from ED?: No Referrals: Mehdi Hand DO [Primary Care Provider] - 1-2 days Time of Disposition: 09:42
[2019-06-21] MEDS ORDERED: HYDROmorphone 0.5 MG/0.5 ML SYRINGE IVP STA (09:42)
[2019-06-21] MEDS ORDERED: KETOROLAC 30 MG/ML 1 ML VIAL IVP STA (09:42)
[2019-06-21 09:55] VITALS: BP 141/74; PULSE 81; RESP 16
== END 2019-06-21 10:00 | disposition home or self-care (01) ==
LOC: EC 07:47
DX: K52.9 Noninfective gastroenteritis and colitis, unspecified (principal); D72.829 Elevated white blood cell count, unspecified; E86.0 Dehydration; E87.2 Acidosis; M79.7 Fibromyalgia; K21.9 Gastro-esophageal reflux disease without esophagitis; M19.90 Unspecified osteoarthritis, unspecified site; Z87.19 Personal history of other diseases of the digestive system; Z90.49 Acquired absence of other specified parts of digestive tract; Z98.51 Tubal ligation status; Z87.442 Personal history of urinary calculi; Z79.1 Long term (current) use of non-steroidal anti-inflammatories (NSAID); Z79.899 Other long term (current) drug therapy; Z88.1 Allergy status to other antibiotic agents; Z88.5 Allergy status to narcotic agent; Z88.8 Allergy status to other drugs, medicaments and biological substances
CPT/HCPCS: 36415; 80053; 82150; 83605; 83690; 85025; 81001; 74177; 99284; 96374; 96375 ×2; 96376; 96361; J2405; J1885; J1170 ×2; Q9967

== ENCOUNTER → 2019-12-19 | Outpatient (CLI) | payer OTHER ==
--- NOTE | 2019-12-19 08:24 | US ---
EXAMINATION TYPE: US extremity nonvasc mass LT DATE OF EXAM: 12/19/2019 COMPARISON: NONE CLINICAL HISTORY: 59-year-old female R22.32 LUMP OF SKIN OF LT UPPER EXTREMITY. Pt states palpable denny mp left lateral upper arm TECHNIQUE: Targeted ultrasound examination of the left arm mid posterior aspect at the site of palpab le abnormality. FINDINGS: Knockout Man notes: Hyperechoic area left lateral arm where patient feels a lump= 1.1 x 1.1 x 1.5 cm, (pt states history of lipomas in other areas of body) This lesion is circumscribed centered within the subcutaneous adipose just deep to the skin surface. IMPRESSION: 1.5 cm echogenic lesion centered in the subcutaneous adipose just deep to the skin surface at the lef t arm site of palpable abnormality. Findings favored to represent a lipoma. If there is growth or the area is symptomatic, surgical excision can be considered.
== END ==
LOC: RADUSWWP 08:01
PROVIDERS: ATTEND Family Medicine
DX: L98.9 Disorder of the skin and subcutaneous tissue, unspecified (principal)

== ENCOUNTER 2020-04-19 07:06 | Day surgery (SDC) | payer OTHER ==
[2020-04-14 15:05] VITALS: BMI 32.9
[~2020-04-19 07:06] MED LIST changes: +ACETAMINOPHEN TAB 500 MG TAB PO ONE; -BACITRACIN 50,000 UNIT, POLYMYXIN B 500,000 UNIT in SODIUM CHLORIDE 0.9% IRRIGATIO 1,00... IRRIGATION ONE; -DEXAMETHASONE SOD PHOSPHATE 10 MG/ML 1 ML VIAL IV ONE; +DEXAMETHASONE SOD PHOSPHATE 4 MG/ML 1 ML VIAL IV ONE; +HEPARIN SODIUM,PORCINE 5,000 UNIT/ML 1 ML VIAL SQ ONE; +HYDROmorphone 0.5 MG/0.5 ML SYRINGE IVP PRN; -LIDOCAINE 1% 20 ML VIAL (10MG/ML) FOR IV START INTRADERMA PRN; -MIDAZOLAM 2 MG/2 ML VIAL IV PRN; +Pre Op ABX Message 1 EACH MISC MISCELLANE ONE; -SCOPOLAMINE 1.5MG/72HR PATCH TRANSDERM ONE
[2020-04-19] MEDS: LACTATED RINGERS 1,000 ML IV SCH ×2 (07:52→08:45)
--- NOTE | 2020-04-19 07:53 | P.GSHP ---
History of Present Illness H&P Date: 04/19/20 Chief Complaint: left arm masses 59-year-old female seen 1 month ago in the office. Complains of a mass in the left upper arm and the left lower arm. Both increasing in size. Both painful at times. History of similar events in the past in other locations. Past Medical History Past Medical History: Fibromyalgia, GERD/Reflux, Osteoarthritis (OA) Additional Past Medical History / Comment(s): Hx Diverticulitis. Spondylosis. hx migraines, "blood pressure runs a little low", colitis, sore rt knee History of Any Multi-Drug Resistant Organisms: None Reported Past Surgical History: Appendectomy, Back Surgery, Orthopedic Surgery, Tubal Ligation Additional Past Surgical History / Comment(s): mult back surgeries, lump removed from side, andrade hand carpal tunnel, spinal fusion. left ankle x 3 for fx, andrade knee arthoscopy, lipoma removed from under left arm and left foot, cystoscopy Past Anesthesia/Blood Transfusion Reactions: Previous Problems w/ Anesthesia, Motion Sickness, Postoperative Nausea & Vomiting (PONV) Additional Past Anesthesia/Blood Transfusion Reaction / Comment(s): "very hard time coming out", claustrophobia Smoking Status: Never smoker - Past Family History Mother Family Medical History: No Reported History Medications and Allergies Home Medications Medication Instructions Recorded Confirmed Type Gabapentin [Neurontin] 300 mg PO HS 09/26/18 04/19/20 History Ibuprofen [Motrin] 800 mg PO HS 09/26/18 04/19/20 History diphenhydrAMINE [Benadryl] 25 mg PO HS PRN 09/26/18 04/19/20 History Acetaminophen [Tylenol] 500 mg PO HS 04/14/20 04/19/20 History Allergies Allergy/AdvReac Type Severity Reaction Status Date / Time codeine Allergy Itching Verified 04/19/20 07:28 erythromycin base Allergy Rash/Hives, Verified 04/19/20 07:28 vomiting morphine Allergy Rash/Hives, Verified 04/19/20 07:28 vomiting penicillins Allergy Vomiting Uncoded 04/19/20 07:28 steroids Allergy Rash/Hives, Uncoded 04/19/20 07:28 nausea,head ache Surgical - Exam Vital Signs Temp Pulse Resp BP Pulse Ox 97.6 F 79 18 117/59 98 04/19/20 07:39 04/19/20 07:39 04/19/20 07:39 04/19/20 07:39 04/19/20 07:39 Physical exam: General: Well-developed, well-nourished HEENT: Normocephalic, sclerae nonicteric Abdomen: Nontender, nondistended Extremities: No edema, 2.5 cm left forearm mass, 1.5 cm left posterior brachial mass Neuro: Alert and oriented Assessment and Plan (1) Mass of left upper extremity Narrative/Plan: We'll proceed with surgical excision both masses at this time. Risks of bleeding, infection, scarring, numbness, recurrence reviewed. She understands and wishes to proceed. Current Visit: Yes Status: Acute Code(s): R22.32 - LOCALIZED SWELLING, MASS AND LUMP, LEFT UPPER LIMB SNOMED Code(s): 695874055
[2020-04-19] MEDS ORDERED: SCOPOLAMINE 1.5MG/72HR PATCH TRANSDERM ONE (07:59)
[2020-04-19] MEDS ORDERED: PROPOFOL 10 MG/ML 20 ML VIAL IV ONE (08:42)
[2020-04-19] MEDS ORDERED: PHENYLEPHRINE-0.9% NACL SYG 1 MG/10 ML SYRINGE ONE (08:42)
[2020-04-19] MEDS ORDERED: GLYCOPYRROLATE 0.2 MG/ML 2 ML VIAL ONE (08:42)
[2020-04-19] MEDS ORDERED: LIDOCAINE 1% INJ 10MG/ML (20 ML MDV) ONE (08:42)
[2020-04-19] MEDS ORDERED: LIDOCAINE 1%-EPI 1:100,000 20 ML VIAL SQ ONE (09:09)
[2020-04-19 09:24] VITALS: TEMP 97
[2020-04-19 09:31] VITALS: RESP 16
[2020-04-19] MEDS ORDERED: NALOXONE 0.4 MG/ML 1 ML VIAL IV PRN (09:39)
--- NOTE | 2020-04-19 09:42 | P.OP ---
Date of Procedure: 04/19/20 Procedure(s) Performed: PREOPERATIVE DIAGNOSIS: Left arm lipomas POSTOPERATIVE DIAGNOSIS: Same PROCEDURE: Excision left upper and left lower arm lipomas with intermediate closure SURGEON: Tj EBL: Bruce Mejia ANESTHESIA: Gen. COMPLICATIONS: None OPERATIVE PROCEDURE: A sedated per anesthesia. Left arm prepped and draped sterilely. Posterior left upper arm lipomatous mass identified. This was excised. This measured 2.0 cm in size. This was sent to pathology. Subcutaneous tissues closed using 3-0 Vicryl sutures. Skin closed using interrupted 4-0 Monocryl sutures. Skin incision length 2 cm. Left lower arm lipoma then excised in a similar fashion. This measured 2.5 cm in size. Skin and subcutaneous tissues closed in a similar fashion. Skin incision length again 2 cm. Total intermediate closure length 4 cm. Skin glue and sterile dressings applied. DISPOSITION: Stable to recovery room
[2020-04-19 10:30] VITALS: BP 123/85; PULSE 65
== END 2020-04-19 10:38 | disposition home or self-care (01) ==
LOC: OR 07:06
PROVIDERS: ATTEND Surgery
DX: D17.22 Benign lipomatous neoplasm of skin and subcutaneous tissue of left arm (principal); K21.9 Gastro-esophageal reflux disease without esophagitis; M79.7 Fibromyalgia; F40.240 Claustrophobia; M19.90 Unspecified osteoarthritis, unspecified site; M47.819 Spondylosis without myelopathy or radiculopathy, site unspecified; Z98.1 Arthrodesis status; Z88.5 Allergy status to narcotic agent; Z88.0 Allergy status to penicillin; Z88.1 Allergy status to other antibiotic agents; Z88.8 Allergy status to other drugs, medicaments and biological substances; Z79.1 Long term (current) use of non-steroidal anti-inflammatories (NSAID); Z79.899 Other long term (current) drug therapy; Z98.51 Tubal ligation status; Z90.49 Acquired absence of other specified parts of digestive tract; Z98.890 Other specified postprocedural states
CPT/HCPCS: 24075; 25075; J1644; J2405; J2001; J2370; J2704; 88304

== ENCOUNTER 2024-02-11 13:37 | Emergency (ER) | payer OTHER ==
[2024-02-11 13:53] VITALS: PULSE 54; TEMP 97.5
[2024-02-11 14:29] LABS: Basophils # (A) 0.1 k/uL (0-0.2); Basophils % (A) 1 %; Eosinophils # (A) 0.4 k/uL (0-0.7); Eosinophils % (A) 3 %; HCT 38.5 % (34.0-46.0); HGB 12.6 gm/dL (11.4-16.0); Lymphocytes # (A) 2.6 k/uL (1.0-4.8); Lymphocytes % (A) 19 %; MCH 29.9 pg (25.0-35.0); MCHC 32.8 g/dL (31.0-37.0); MCV 91.3 fL (80.0-100.0); Mean Platelet Volume 6.9; Monocytes # (A) 0.7 k/uL (0-1.0); Monocytes % (A) 5 %; Neutrophils # (A) 9.8 k/uL (1.3-7.7); Neutrophils % (A) 71 %; Platelet Count 344 k/uL (150-450); RBC 4.21 m/uL (3.80-5.40); RDW 13.3 % (11.5-15.5); WBC 13.8 k/uL (3.8-10.6)
[2024-02-11 14:40] LABS: ALT 21 U/L (4-34); AST 24 U/L (14-36); African American GFR (CKD) >90 (>60 ml/min/1.73 sqM); Albumin 4.4 g/dL (3.5-5.0); Alkaline Phosphatase 80 U/L (38-126); Amylase 51 U/L (30-110); Anion Gap 7 mmol/L; Blood Urea Nitrogen 23 mg/dL (7-17); Calcium 9.5 mg/dL (8.4-10.2); Carbon Dioxide 26 mmol/L (22-30); Chloride 106 mmol/L (98-107); Glucose 92 mg/dL (74-99); Lipase 127 U/L (23-300); Non-African American GFR(CKD) 83 (>60 ml/min/1.73 sqM); Potassium 4.8 mmol/L (3.5-5.1); Sodium 139 mmol/L (137-145); Total Bilirubin 0.5 mg/dL (0.2-1.3); Total Protein 7.8 g/dL (6.3-8.2)
[2024-02-11] MEDS: SODIUM CHLORIDE 0.9% 1,000 ML IV STA (14:41)
[2024-02-11] MEDS: ONDANSETRON 4 MG/2 ML VIAL IVP STA (14:41)
[2024-02-11] MEDS: HYDROmorphone 0.5 MG/0.5 ML SYRINGE IVP STA (14:43)
[2024-02-11 14:46] LABS: INR 0.9 (<1.2); Partial Thromboplastin Time 22.1 sec (22.0-30.0)
[2024-02-11] MEDS: PANTOPRAZOLE 40 MG/10 ML VIAL IVP STA (14:46)
[2024-02-11 14:56] LABS: Appearance,Urine Clear (Clear); Bacteria,Urine Rare /hpf; Bilirubin,Urine Negative (Negative); Blood,Urine Moderate (Negative); Color,Urine Light Yellow; Glucose,Urine (UA) Negative (Negative); Ketones,Urine Negative (Negative); Leukocyte Esterase,Urine Negative (Negative); Mucus,Urine Rare /hpf; Nitrite,Urine Negative (Negative); PH, Urine 5.5 (5.0-8.0); Protein,Urine Negative (Negative); RBC,Urine 2 /hpf (0-5); Specific Gravity,Urine 1.018 (1.001-1.035); Squamous Epithelial Cell,Urine 1 /hpf (0-4); Urobilinogen,Urine <2.0 mg/dL (<2.0); WBC,Urine <1 /hpf (0-5)
[2024-02-11] MEDS: LORazepam 2 MG/ML INJ IV STA (15:32)
--- NOTE | 2024-02-11 16:59 | CT ---
EXAMINATION TYPE: CT abdomen pelvis w con CT DLP: 1206.8 mGycm, Automated exposure control for dose reduction was used. DATE OF EXAM: 02/11/2024 4:28 PM COMPARISON: CT abdomen pelvis most recent from CLINICAL INDICATION: Female, 63 years old with history of abdominal pain. LLQ, RLQ, RUQ; abdominal pa in. LLQ, RLQ, RUQ TECHNIQUE: Axial CT abdomen pelvis w con;Sagittal and coronal reformats were created on a separate w orkstation. Contrast used:100 ml mL of Isovue 300 with IV Contrast, (none if empty) Oral contrast used: without Oral Contrast (none if empty) FINDINGS: LOWER CHEST: Unremarkable ABDOMEN LIVER: Unremarkable GALLBLADDER AND BILE DUCTS: Unremarkable. PANCREAS: Unremarkable. SPLEEN: Unremarkable. ADRENAL GLANDS: Unremarkable. KIDNEYS AND URETERS: No evidence of hydronephrosis or renal calculus. The ureters are unremarkable. Simple appearing right renal probable cyst. PELVIS BLADDER: Unremarkable REPRODUCTIVE: Unremarkable. ABDOMEN & PELVIS STOMACH AND BOWEL: There are colonic diverticula present, one of which has adjacent fat stranding rafa nges. No organizing fluid collection or evidence of pneumoperitoneum. No evidence of bowel obstructio n. PERITONEUM/RETROPERITONEUM: No evidence of pneumoperitoneum or free fluid. VASCULATURE: No evidence of aortic aneurysm. MUSCULOSKELETAL: No acute osseous abnormalities, fixation hardware traverses spine appears intact. LYMPH NODES: No gross evidence for lymphadenopathy. SOFT TISSUE/ABDOMINAL WALL: Fat-containing umbilical hernia. IMPRESSION: Colitis/sigmoid diverticulitis. No evidence of organizing fluid collection or perforation. [facility], , 02/11/2024 4:57 PM
--- NOTE | 2024-02-11 17:41 | ED ---
General Adult HPI - General Chief complaint: Abdominal Pain Stated complaint: abd/back pain Time Seen by Provider: 02/11/24 13:55 Source: patient, RN notes reviewed, old records reviewed Mode of arrival: ambulatory Limitations: no limitations - History of Present Illness Initial comments: Patient is a 63-year-old female with past medical history remarkable for diverticulitis, fibromyalgia presents emergency department complaining of pain that reminds her of her previous diverticulitis bout. States that she has been having the pain for 1 day. Describes it as left lower quadrant pain with radiation towards the left lower back. Denies any nausea or vomiting. Endorses nonbloody diarrhea. Denies any urinary complaints. Denies any vaginal discharge or bleeding. Denies chest pain or shortness of breath. Presents for further evaluation at this time. - Related Data Home Medications Medication Instructions Recorded Confirmed Ibuprofen [Motrin] 800 mg PO TID PRN 09/26/18 02/11/24 diphenhydrAMINE [Benadryl] 25 mg PO HS 09/26/18 02/11/24 Gabapentin 300 mg PO TID PRN 02/11/24 02/11/24 Gabapentin 600 mg PO QID PRN 02/11/24 02/11/24 Multivitamins, Thera [Multivitamin 1 tab PO DAILY 02/11/24 02/11/24 (formulary)] Vitamin D3/Magnesium 1 tab PO DAILY 02/11/24 02/11/24 Previous Rx's Medication Instructions Recorded Ciprofloxacin HCl [Cipro] 500 mg PO BID 5 Days #10 tab 02/11/24 metroNIDAZOLE [Flagyl] 500 mg PO TID 5 Days #15 tab 02/11/24 Allergies Allergy/AdvReac Type Severity Reaction Status Date / Time codeine Allergy Itching Verified 02/11/24 17:19 erythromycin base Allergy Rash/Hives, Verified 02/11/24 17:19 vomiting morphine Allergy Rash/Hives, Verified 02/11/24 17:19 vomiting Penicillins Allergy Rash/Hives Verified 02/11/24 17:19 steroids Allergy Rash/Hives, Uncoded 02/11/24 17:19 nausea,head ache Review of Systems ROS Statement: Those systems with pertinent positive or pertinent negative responses have been documented in the HPI. Review of Systems: CONST: Denies fever EYES: Denies blurry vision ENT: Denies nasal congestion C/V: Denies Chest pain RESP: Denies shortness of breath GI: Endorses abdominal pain : Denies dysuria SKIN: Denies rash. MSK: Denies joint pain. NEURO: Denies headache ROS Other: All systems not noted in ROS Statement are negative. Past Medical History Past Medical History: Fibromyalgia, GERD/Reflux, Osteoarthritis (OA) Additional Past Medical History / Comment(s): Hx Diverticulitis. Spondylosis. hx migraines, "blood pressure runs a little low", colitis, sore rt knee History of Any Multi-Drug Resistant Organisms: None Reported Past Surgical History: Appendectomy, Back Surgery, Orthopedic Surgery, Tubal Li gation Additional Past Surgical History / Comment(s): mult back surgeries, lump removed from side, andrade hand carpal tunnel, spinal fusion. left ankle x 3 for fx, andrade knee arthoscopy, lipoma removed from under left arm and left foot, cystoscopy Past Anesthesia/Blood Transfusion Reactions: Previous Problems w/ Anesthesia, Motion Sickness, Postoperative Nausea & Vomiting (PONV) Additional Past Anesthesia/Blood Transfusion Reaction / Comment(s): "very hard time coming out", claustrophobia Past Psychological History: No Psychological Hx Reported Smoking Status: Never smoker Past Alcohol Use History: None Reported Past Drug Use History: None Reported - Past Family History Mother Family Medical History: No Reported History General Exam - General Exam Comments Initial Comments: General: Is in mild to moderate distress secondary to abdominal pain. HEAD: Normal with no signs of head trauma. EYES: PERRLA, EOMI, conjunctiva normal, no discharge. ENT: Hearing grossly intact, normal oropharynx. RESPIRATORY: Clear breath sounds bilaterally. No wheezes, rales, or rhonchi. C/V: Regular rate and rhythm. S1 and S2 auscultated, no edema, peripheral pulses 2+ and intact throughout ABD: Abdomen is soft, nondistended. Tenderness to palpation in the left lower quadrant with no guarding. No rebound tenderness. No peritoneal signs. No CVA tenderness to percussion. EXT: Normal range of motion, no obvious deformity SKIN: No rashes or lesions observed on exposed skin. NEURO: Alert and oriented x 4. Limitations: no limitations Course Vital Signs 02/11/24 02/11/24 13:51 18:17 Temperature 97.5 F L Pulse Rate 54 L 54 L Respiratory 18 20 Rate Blood Pressure 119/83 122/84 O2 Sat by Pulse 99 97 Oximetry Medical Decision Making - Medical Decision Making Was pt. sent in by a medical professional or institution ([facility], [facility], urgent care, hospital, or skilled nursing...) When possible be specific @ -No Did you speak to anyone other than the patient for history (EMS, parent, family, police, friend...)? What history was obtained from this source @ -No Did you review nursing and triage notes (agree or disagree)? Why? @ -I reviewed and agree with nursing and triage notes Were old charts reviewed (outside hosp., previous admission, EMS record, old EKG, old radiological studies, urgent care reports/EKG's, skilled nursing records)? Report findings @ -No old charts were reviewed Differential Diagnosis (chest pain, altered mental status, abdominal pain women, abdominal pain men, vaginal bleeding, weakness, fever, dyspnea, syncope, headache, dizziness, GI bleed, back pain, seizure, CVA, palpatations, mental health, musculoskeletal)? @ -Differential Abdominal Pain Women: Appendicitis, Cholecystitis, diverticulosis, ischemic bowel, pancreatitis, hepatitis, UTI, gastroenteritis, AAA, incarcerated hernia, bowel obstruction, constipation, inflammatory bowel, hepatitis, peptic ulcer disease, splenic infarction, perforated viscus, vulvitis, ovarian torsion, PID, kidney stone, placenta abruption, this is not meant to be an all-inclusive list EKG interpreted by me (3pts min.). @ -As above X-rays interpreted by me (1pt min.). @ -None done CT interpreted by me (1pt min.). @ -CT abdomen pelvis reveals uncomplicated diverticulitis. U/S interpreted by me (1pt. min.). @ -None done What testing was considered but not performed or refused? (CT, X-rays, U/S, labs)? Why? @ -None What meds were considered but not given or refused? Why? @ -None Did you discuss the management of the patient with other professionals (professionals i.e. [facility], [facility], lab, RT, psych nurse, licensed social worker, operations vocational instructor, teacher, protective officer, business case analyst)? Give summary @ -No Was smoking cessation discussed for >3mins.? @ -No Was critical care preformed (if so, how long)? @ -No Were there social determinants of health that impacted care today? How? (Homelessness, low income, unemployed, alcoholism, drug addiction, transportatio n, low edu. Level, literacy, decrease access to med. care, retirement, rehab)? @ -No Was there de-escalation of care discussed even if they declined (Discuss DNR or withdrawal of care, Hospice)? DNR status @ -No What co-morbidities impacted this encounter? (DM, HTN, Smoking, COPD, CAD, Cancer, CVA, ARF, Chemo, Hep., AIDS, mental health diagnosis, sleep apnea, morbid obesity)? @ -None Was patient admitted / discharged? Hospital course, mention meds given and route, prescriptions, significant lab abnormalities, going to OR and other pertinent info. @ -Patient presents with findings on exam as well as past medical history concerning for diverticulitis. Vitals are within acceptable limits. Patient was symptomatically treated with IV analgesia medications, fluids. We will obtain abdominal laboratory studies as well as CT imaging. Patient was in agreement this plan. Screen EKG showed no signs of acute ischemia. Laboratory studies are remarkable for mild leukocytosis of 13.8. Lactic acid is within normal limits. Remainder the labs unremarkable. CT imaging shows diverticulitis. On reevaluation, patient symptoms are improved. We discussed her results. She will be discharged home on antibiotics for diverticulitis. Strict return precautions discussed. Patient was in agreement this plan. She will be given starter packs of Tylenol 3 as well as Zofran ODT for home. Patient was in agreement this plan. Both agree she does not meet inpatient criteria at this time as pain is controlled with relatively normal labs and diverticulitis is uncomplicated. I will provide the patient with a prescription for ciprofloxacin, Flagyl. I instructed the patient to follow up with their PCP in the next 1-3 days. I provided contact information for follow up with surgery. I explained that the patient should return to the emergency department if they experience any worsening symptoms. Strict return precautions were discussed with the patient. The patient expressed understanding of these instructions. I answered all questions that the patient had. The patient was discharged home in good condition with their prescriptions and follow up information. Undiagnosed new problem with uncertain prognosis? @ -No Drug Therapy requiring intensive monitoring for toxicity (Heparin, Nitro, Insu mireya, Cardizem)? @ -No Were any procedures done? @ -No Diagnosis/symptom? @ -Diverticulitis Acute, or Chronic, or Acute on Chronic? @ -Acute Uncomplicated (without systemic symptoms) or Complicated (systemic symptoms)? @ -Complicated Side effects of treatment? @ -No Exacerbation, Progression, or Severe Exacerbation? @ -No Poses a threat to life or bodily function? How? (Chest pain, [place], [place], pneumonia, PE, COPD, DKA, ARF, appy, cholecystitis, CVA, Diverticulitis, Homicidal, Suicidal, threat to staff... and all critical care pts) @ -Unlikely as long as patient is treated properly with antibiotics. - Lab Data Result diagrams: 02/11/24 14:12 02/11/24 14:12 Lab Results 02/11/24 02/11/24 02/11/24 Range/Units 14:12 14:12 14:12 WBC 13.8 H (3.8-10.6) k/uL RBC 4.21 (3.80-5.40) m/uL Hgb 12.6 (11.4-16.0) gm/dL Hct 38.5 (34.0-46.0) % MCV 91.3 (80.0-100.0) fL MCH 29.9 (25.0-35.0) pg MCHC 32.8 (31.0-37.0) g/dL RDW 13.3 (11.5-15.5) % Plt Count 344 (150-450) k/uL MPV 6.9 Neutrophils % 71 % Lymphocytes % 19 % Monocytes % 5 % Eosinophils % 3 % Basophils % 1 % Neutrophils # 9.8 H (1.3-7.7) k/uL Lymphocytes # 2.6 (1.0-4.8) k/uL Monocytes # 0.7 (0-1.0) k/uL Eosinophils # 0.4 (0-0.7) k/uL Basophils # 0.1 (0-0.2) k/uL PT 10.0 (10.0-12.5) sec INR 0.9 (<1.2) APTT 22.1 (22.0-30.0) sec Sodium 139 (137-145) mmol/L Potassium 4.8 (3.5-5.1) mmol/L Chloride 106 (98-107) mmol/L Carbon Dioxide 26 (22-30) mmol/L Anion Gap 7 mmol/L BUN 23 H (7-17) mg/dL Creatinine 0.78 (0.52-1.04) mg/dL Est GFR (CKD-EPI)AfAm >90 (>60 ml/min/1.73 sqM) Est GFR (CKD-EPI)NonAf 83 (>60 ml/min/1.73 sqM) Glucose 92 (74-99) mg/dL Plasma Lactic Acid Devante (0.7-2.0) mmol/L Calcium 9.5 (8.4-10.2) mg/dL Total Bilirubin 0.5 (0.2-1.3) mg/dL AST 24 (14-36) U/L ALT 21 (4-34) U/L Alkaline Phosphatase 80 (38-126) U/L Total Protein 7.8 (6.3-8.2) g/dL Albumin 4.4 (3.5-5.0) g/dL Amylase 51 (30-110) U/L Lipase 127 (23-300) U/L Urine Color Urine Appearance (Clear) Urine pH (5.0-8.0) Ur Specific [place] (1.001-1.035) Urine Protein (Negative) Urine Glucose (UA) (Negative) Urine Ketones (Negative) Urine Blood (Negative) Urine Nitrite (Negative) Urine Bilirubin (Negative) Urine Urobilinogen (<2.0) mg/dL Ur Leukocyte Esterase (Negative) Urine RBC (0-5) /hpf Urine WBC (0-5) /hpf Ur Squamous Epith Cells (0-4) /hpf Urine Bacteria (None) /hpf Urine Mucus (None) /hpf 02/11/24 02/11/24 Range/Units 14:12 14:44 WBC (3.8-10.6) k/uL RBC (3.80-5.40) m/uL Hgb (11.4-16.0) gm/dL Hct (34.0-46.0) % MCV (80.0-100.0) fL MCH (25.0-35.0) pg MCHC (31.0-37.0) g/dL RDW (11.5-15.5) % Plt Count (150-450) k/uL MPV Neutrophils % % Lymphocytes % % Monocytes % % Eosinophils % % Basophils % % Neutrophils # (1.3-7.7) k/uL Lymphocytes # (1.0-4.8) k/uL Monocytes # (0-1.0) k/uL Eosinophils # (0-0.7) k/uL Basophils # (0-0.2) k/uL PT (10.0-12.5) sec INR (<1.2) APTT (22.0-30.0) sec Sodium (137-145) mmol/L Potassium (3.5-5.1) mmol/L Chloride (98-107) mmol/L Carbon Dioxide (22-30) mmol/L Anion Gap mmol/L BUN (7-17) mg/dL Creatinine (0.52-1.04) mg/dL Est GFR (CKD-EPI)AfAm (>60 ml/min/1.73 sqM) Est GFR (CKD-EPI)NonAf (>60 ml/min/1.73 sqM) Glucose (74-99) mg/dL Plasma Lactic Acid Devante 0.8 (0.7-2.0) mmol/L Calcium (8.4-10.2) mg/dL Total Bilirubin (0.2-1.3) mg/dL AST (14-36) U/L ALT (4-34) U/L Alkaline Phosphatase (38-126) U/L Total Protein (6.3-8.2) g/dL Albumin (3.5-5.0) g/dL Amylase (30-110) U/L Lipase (23-300) U/L Urine Color Light Yellow Urine Appearance Clear (Clear) Urine pH 5.5 (5.0-8.0) Ur Specific [place] 1.018 (1.001-1.035) Urine Protein Negative (Negative) Urine Glucose (UA) Negative (Negative) Urine Ketones Negative (Negative) Urine Blood Moderate H (Negative) Urine Nitrite Negative (Negative) Urine Bilirubin Negative (Negative) Urine Urobilinogen <2.0 (<2.0) mg/dL Ur Leukocyte Esterase Negative (Negative) Urine RBC 2 (0-5) /hpf Urine WBC <1 (0-5) /hpf Ur Squamous Epith Cells 1 (0-4) /hpf Urine Bacteria Rare H (None) /hpf Urine Mucus Rare H (None) /hpf - EKG Data -: EKG Interpreted by Nm EKG Comments: 12-lead Electrocardiogram Interpretation Note EKG was reviewed and interpreted by myself. 12-lead ECG performed at 1412 is interpreted by me as revealing sinus bradycardia at a rate of 48 beats per minute. Ambler is normal. AK interval is 159 ms, QRS duration is 97 ms, QTc is 407 ms.. There were no ST or T wave abnormalities to suggest myocardial ischemi a or injury. R wave progression across the precordium was satisfactory. By my interpretation this EKG is non-diagnostic for acute ischemia. Disposition Clinical Impression: Diverticulitis Disposition: HOME SELF-CARE Condition: Good Instructions (If sedation given, give patient instructions): Diverticulitis (ED) Prescriptions: Ciprofloxacin HCl [Cipro] 500 mg PO BID 5 Days #10 tab metroNIDAZOLE [Flagyl] 500 mg PO TID 5 Days #15 tab Is patient prescribed a controlled substance at d/c from ED?: No Referrals: Axel Nichole MD [Primary Care Provider] - 1-2 days Teodoro Julien MD [STAFF PHYSICIAN] - 1-2 days Time of Disposition: 17:41
[2024-02-11] MEDS: CIPROFLOXACIN HCL 500 MG TAB PO STA (18:14)
[2024-02-11] MEDS: metroNIDAZOLE 500 MG TAB PO STA (18:14)
[2024-02-11] MEDS: ONDANSETRON 4 MG ODT STARTER PACK 2 TAB BTL PO STA (18:15)
[2024-02-11] MEDS: ACET/COD 300 MG/30 MG STARTER PACK 6 TAB BTL PO STA (18:15)
[2024-02-11 18:25] VITALS: BP 122/84; RESP 20
== END 2024-02-11 18:33 | disposition home or self-care (01) ==
LOC: EC 13:37
DX: K57.32 Diverticulitis of large intestine without perforation or abscess without bleeding (principal); Z88.0 Allergy status to penicillin; Z88.1 Allergy status to other antibiotic agents; Z88.8 Allergy status to other drugs, medicaments and biological substances
CPT/HCPCS: 36415; 74177; 80053; 81001; 82150; 83605; 83690; 85025; 85610; 85730; 93005; 96361; 96374; 96375; 99284

== ENCOUNTER → 2024-02-29 | Outpatient (CLI) | payer OTHER ==
[2024-02-29 11:24] LABS: Basophils # (A) 0.06 X 10*3/uL (0.00-0.10); Basophils % (A) 0.7 %; Eosinophils # (A) 0.36 X 10*3/uL (0.04-0.35); Eosinophils % (A) 4.2 %; HGB 13.5 g/dL (12.0-15.0); Lymphocytes # (A) 2.83 X 10*3/uL (0.90-5.00); Lymphocytes % (A) 32.8 %; MCHC 32.9 g/dL (32.0-37.0); MCV 88.2 FL (80.0-97.0); Mean Platelet Volume 9.5 FL (9.5-12.2); Monocytes # (A) 0.89 X 10*3/uL (0.20-1.00); Monocytes % (A) 10.3 %; NRBC Per 100 WBC 0 X 10*3/uL (0.00-0.01); Neutrophils # (A) 4.47 X 10*3/uL (1.80-7.70); Neutrophils % (A) 51.8 %; Platelet Count 387 X 10*3/uL (140-440); RBC 4.65 X 10*6/uL (4.10-5.20); RDW 13.4 % (11.5-14.5); WBC 8.63 X 10*3/uL (4.50-10.00)
[2024-02-29 11:35] LABS: Anion Gap 11.7 mmol/L (4.00-12.00); Carbon Dioxide 24.3 mmol/L (21.6-31.8); Potassium 4.3 mmol/L (3.5-5.5)
== END | disposition home or self-care (01) ==
LOC: LABWHC1 08:09
PROVIDERS: ATTEND Surgery
DX: Z01.818 Encounter for other preprocedural examination (principal); I49.8 Other specified cardiac arrhythmias; K57.32 Diverticulitis of large intestine without perforation or abscess without bleeding
CPT/HCPCS: 36415; 80051; 85025; 86850; 86900; 86901; 93005

== ENCOUNTER 2024-03-06 08:16 | Day surgery (SDC) | payer OTHER ==
[2024-03-06] MEDS: IV FLUID CONTINUATION 1,000 ML IV ONE (08:55)
[2024-03-06 09:04] VITALS: TEMP 97.8
[2024-03-06] MEDS: LACTATED RINGERS 1,000 ML IV SCH (09:11)
[2024-03-06] MEDS ORDERED: PROPOFOL 10 MG/ML 20 ML VIAL IV ONE (09:17)
--- NOTE | 2024-03-06 09:25 | P.OP ---
Date of Procedure: 03/06/24 Preoperative Diagnosis: diverticulitis Postoperative Diagnosis: Diverticulitis Procedure(s) Performed: Colonoscopy Anesthesia: MAC Surgeon: Teodoro Julien Pathology: none sent Condition: stable Disposition: PACU Description of Procedure: The patient was placed on the endoscopy table lateral position. She received IV sedation. Digital rectal exams performed. There was no abnormalities. Flexible scope was then placed patient anus passed throughout the colon. In the sigmoid colon there is extensive scarring of the colon. There was numerous diverticuli seen. The scope could not be advanced. Point this point scope withdrawn. Diverticular changes are noted. Scope back to the rectum this appea red normal. Scope withdrawn for the patient.
[2024-03-06 09:57] VITALS: BP 127/83; PULSE 53; RESP 18
== END 2024-03-06 10:15 | disposition home or self-care (01) ==
LOC: ORWHC2ENDO 08:16
PROVIDERS: ATTEND Surgery
CPT/HCPCS: 45330

== ENCOUNTER 2024-03-21 22:36 | Emergency (ER) | payer OTHER ==
[2024-03-21 22:54] VITALS: TEMP 98.4
[2024-03-22] MEDS: KETOROLAC 15 MG/ML 1 ML VIAL IM STA ×2 (00:12→00:29)
--- NOTE | 2024-03-22 01:48 | XR ---
EXAM: XR Right Foot Complete, 3 or More Views CLINICAL HISTORY: ITS.REASON XR Reason: injury TECHNIQUE: Frontal, lateral and oblique views of the right foot. COMPARISON: No relevant prior studies available. FINDINGS: Bones/joints: No acute fracture. No dislocation. Prior injury bilateral malleolus. Soft tissues: Mild joint effusion. No radiopaque foreign body. IMPRESSION: No acute osseous abnormalities. Mild joint effusion.
--- NOTE | 2024-03-22 01:57 | XR ---
EXAM: XR Right Ankle Complete, 3 or More Views CLINICAL HISTORY: ITS.REASON XR Reason: FALL TECHNIQUE: Frontal, lateral and oblique views of the right ankle. COMPARISON: No relevant prior studies available. FINDINGS: Bones/joints: No acute fracture. No dislocation. Old injury to the bilateral malleolus. Plantar enthesophyte. Soft tissues: Joint effusion. IMPRESSION: No acute osseous abnormalities. Joint effusion.
--- NOTE | 2024-03-22 02:08 | ED ---
Lower Extremity Injury HPI - General Chief Complaint: Extremity Injury, Lower Stated Complaint: Fall (R Ankle Injury + R Shoulder Pain) Time Seen by Provider: 03/21/24 22:56 Source: patient Mode of arrival: wheelchair Limitations: no limitations - History of Present Illness Initial Comments: 63-year-old female presenting with chief complaint of right foot and ankle injury. Patient was sitting on a swing outside when it broke, then fell onto her foot. Patient states that this happened earlier in the afternoon when she was in [place], she then drove to [place] and came here for evaluation. She does have bruising swelling and tenderness. Difficulty bearing weight. No numbness or tingling. - Related Data Home Medications Medication Instructions Recorded Confirmed Ibuprofen [Motrin] 800 mg PO TID PRN 09/26/18 03/06/24 diphenhydrAMINE [Benadryl] 25 mg PO HS 09/26/18 03/06/24 Gabapentin 600 mg PO HS PRN 02/11/24 03/06/24 Multivitamins, Thera [Multivitamin 1 tab PO DAILY 02/11/24 03/06/24 (formulary)] Vitamin D3/Magnesium 1 tab PO DAILY 02/11/24 03/06/24 Cyclobenzaprine HCl 10 mg PO HS 03/04/24 03/06/24 Allergies Allergy/AdvReac Type Severity Reaction Status Date / Time codeine Allergy Itching Verified 03/21/24 22:55 erythromycin base Allergy Rash/Hives, Verified 03/21/24 22:55 vomiting morphine Allergy Rash/Hives, Verified 03/21/24 22:55 vomiting Penicillins Allergy Rash/Hives Verified 03/21/24 22:55 steroids Allergy Rash/Hives, Uncoded 03/21/24 22:55 nausea,head ache Review of Systems ROS Statement: Those systems with pertinent positive or pertinent negative responses have been documented in the HPI. ROS Other: All systems not noted in ROS Statement are negative. Past Medical History Past Medical History: Fibromyalgia, GERD/Reflux, Osteoarthritis (OA) Additional Past Medical History / Comment(s): Hx Diverticulitis. Spondylosis. hx migraines, "blood pressure runs a little low", colitis, sore rt knee History of Any Multi-Drug Resistant Organisms: None Reported Past Surgical History: Appendectomy, Back Surgery, Orthopedic Surgery, Tubal Ligation Additional Past Surgical History / Comment(s): mult back surgeries, lump removed from side, andrade hand carpal tunnel, spinal fusion. left ankle x 3 for fx, andrade knee arthoscopy, lipoma removed from under left arm and left foot, cystoscopy Past Anesthesia/Blood Transfusion Reactions: Previous Problems w/ Anesthesia, Motion Sickness, Postoperative Nausea & Vomiting (PONV) Additional Past Anesthesia/Blood Transfusion Reaction / Comment(s): "very hard time coming out", claustrophobia Past Psychological History: No Psychological Hx Reported Smoking Status: Never smoker Past Alcohol Use History: None Reported Past Drug Use History: None Reported - Past Family History Mother Family Medical History: No Reported History General Exam Limitations: no limitations General appearance: alert, in no apparent distress Head exam: Present: atraumatic, normocephalic Eye exam: Present: normal appearance, EOMI Neck exam: Present: normal inspection. Absent: meningismus Respiratory exam: Absent: respiratory distress Cardiovascular Exam: Present: regular rate Right Foot/Toe exam: Present: tenderness, swelling. Absent: full ROM Neurological exam: Present: alert, oriented X3 Psychiatric exam: Present: normal affect, normal mood Skin exam: Present: warm, dry Course Vital Signs 03/21/24 03/22/24 22:46 02:17 Temperature 98.4 F Pulse Rate 61 55 L Respiratory 18 16 Rate Blood Pressure 125/63 122/86 O2 Sat by Pulse 98 100 Oximetry Medical Decision Making - Medical Decision Making Was pt. sent in by a medical professional or institution (, PA, TEXTILE [employer]ING [employer] MECHANIC, urgent care, hospital, or halfway...) When possible be specific @ -No Did you speak to anyone other than the patient for history (EMS, parent, family, police, friend...)? What history was obtained from this source @ -No Did you review nursing and triage notes (agree or disagree)? Why? @ -I reviewed and agree with nursing and triage notes Were old charts reviewed (outside hosp., previous admission, EMS record, old EKG, old radiological studies, urgent care reports/EKG's, halfway records)? Report findings @ -No old charts were reviewed Differential Diagnosis (chest pain, altered mental status, abdominal pain women, abdominal pain men, vaginal bleeding, weakness, fever, dyspnea, syncope, headache, dizziness, GI bleed, back pain, seizure, CVA, palpatations, mental health, musculoskeletal)? @ -Differential includes fracture, dislocation, sprain, strain, not an all- inclusive list EKG interpreted by me (3pts min.). @ -As above X-rays interpreted by me (1pt min.). @ -X-ray shows no evidence of fracture or dislocation CT interpreted by me (1pt min.). @ -None done U/S interpreted by me (1pt. min.). @ -None done What testing was considered but not performed or refused? (CT, X-rays, U/S, labs)? Why? @ -None What meds were considered but not given or refused? Why? @ -None Did you discuss the management of the patient with other professionals ( professionals i.e. , PA, TEXT[employer] MECHANIC, lab, RT, psych nurse, social sciences lecturer, air conditioning supervisor, teacher, surface to air weapons officer, director case management)? Give summary @ -No Was smoking cessation discussed for >3mins.? @ -No Was critical care preformed (if so, how long)? @ -No Were there social determinants of health that impacted care today? How? (Homelessness, low income, unemployed, alcoholism, drug addiction, transportation, low edu. Level, literacy, decrease access to med. care, shelter, rehab)? @ -No Was there de-escalation of care discussed even if they declined (Discuss DNR or withdrawal of care, Hospice)? DNR status @ -No What co-morbidities impacted this encounter? (DM, HTN, Smoking, COPD, CAD, Cancer, CVA, ARF, Chemo, Hep., AIDS, mental health diagnosis, sleep apnea, morbid obesity)? @ -None Was patient admitted / discharged? Hospital course, mention meds given and route, prescriptions, significant lab abnormalities, going to OR and other pertinent info. @ -63-year-old female presenting with chief complaint of injury to the right foot and ankle earlier today. X-rays negative for fracture or dislocation. Patient is given pain medication and educated on today's findings. Educated on supportive management of ankle sprain at home. Provided with crutches. Discharged. Follow-up with PCP. Report back to ER with any new or worsening symptoms. Discussed return parameters and answered all questions. Patient conveyed verbal understanding and agreed to the plan. I discussed this case in detail with my attending Dr. Wakefield Undiagnosed new problem with uncertain prognosis? @ -No Drug Therapy requiring intensive monitoring for toxicity (Heparin, Nitro, Insulin, Cardizem)? @ -No Were any procedures done? @ -No Diagnosis/symptom? @ -Ankle sprain Acute, or Chronic, or Acute on Chronic? @ -Acute Uncomplicated (without systemic symptoms) or Complicated (systemic symptoms)? @ -Uncomplicated Side effects of treatment? @ -No Exacerbation, Progression, or Severe Exacerbation? @ -No Poses a threat to life or bodily function? How? (Chest pain, [place], [place], pneumonia, PE, COPD, DKA, ARF, appy, cholecystitis, CVA, Diverticulitis, Homicidal, Suicidal, threat to staff... and all critical care pts) @ -No Disposition Clinical Impression: Ankle sprain Disposition: HOME SELF-CARE Condition: Good Instructions (If sedation given, give patient instructions): Ankle Sprain (ED) Additional Instructions: Follow-up with PCP. Report back to ER with any new or worsening symptoms. Rest, ice, compress, elevate the ankle. Take Motrin and Tylenol as needed for pain control. Use crutches as needed Is patient prescribed a controlled substance at d/c from ED?: No Referrals: Axel Nichole MD [Primary Care Provider] - 1-2 days Time of Disposition: 02:07
[2024-03-22 02:22] VITALS: BP 122/86; PULSE 55; RESP 16
== END 2024-03-22 02:17 | disposition home or self-care (01) ==
LOC: EC 22:36
CPT/HCPCS: 96372; 99283